=== PATIENT | male | born 1950 | race Caucasian/White ===

== ENCOUNTER → 2018-02-10 12:22 | Outpatient (CLI) | payer MEDICARE, OTHER, SELFPAY ==
[2018-02-10 13:42] LABS: ALB/GLOB Ratio 0.9 RATIO (0.9-2.4); AST(SGOT) 29 U/L (15-37); Alanine Aminotransfer ALT/SGPT 32 U/L (16-61); Albumin, Serum 3.6 g/dL (3.2-5.0); Alkaline Phosphatase 86 U/L (45-117); Anion Gap 10 (5-15); BUN 20 mg/dL (7-18); BUN/Creat Ratio 18.9 RATIO (10-20); Calcium,Total 8.9 mg/dL (8.5-10.1); Chloride 106 mmol/L (98-107); Cholesterol 172 mg/dL (200); Creatinine, Serum 1.06 mg/dL (0.70-1.30); EST Glomerular Filtration Rate 74 mL/min (>60); Est Glom Filt Rate - Afr Amer 89 mL/min (>60); Globulin 4.2 g/dL (2.2-4.2); Glucose 88 mg/dL (74-106); High Density Lipoprotein 55 mg/dL; Potassium 4.1 mmol/L (3.5-5.1); Protein, Total 7.8 g/dL (6.4-8.2); Sodium Level 140 mmol/L (136-145); Triglycerides 100 mg/dL; Very Low Density Lipoprotein 20 mg/dL (5-40)
== END ==
PROVIDERS: Family Provider Family Medicine; PCP Family Medicine; Visit Provider Family Medicine
DX: I10 Essential (primary) hypertension (principal)
CPT/HCPCS: 36415; 80053; 80061

== ENCOUNTER → 2018-07-11 14:40 | Outpatient (CLI) | payer MEDICARE, OTHER, SELFPAY ==
[2018-07-11 13:33] VITALS: BMI 28.8
--- NOTE | 2018-07-11 14:45 | RAD_ITS ---
STUDY: X-RAY CHEST REASON FOR EXAM: Male, 68 years old. Cough TECHNIQUE: Frontal and lateral views of the chest were obtained. COMPARISON: None. FINDINGS: Lines and tubes: None. Lungs: Adequately aerated. No focal airspace opacities. Pleura: No demonstrated abnormality. Mediastinum/elva: Unremarkable. Cardiovascular: Normal size cardiac silhouette. Central vascularity unremarkable. Atherosclerotic calcifications in the thoracic aorta. Soft tissues: Unremarkable. Bones: Degenerative changes in spine and shoulders. Upper abdomen: No demonstrated abnormality. RAD/Chest PA and Lateral IMPRESSION: No evidence of focal consolidation or pleural effusion. Electronically Signed: Sanaz Brown MD at 15:30 EST , Service support ,
--- OUTSIDE RECORDS SUMMARY | 2018-09-12 20:47 | XMS RPT_ITS ---
:1950 Author Organization OHIP Care Team Providers Name Role Phone Giancarlo Suazo AIRCRAFT NAVIGATOR-C Attending Unavailable Brown, Girma Referring Unavailable SuazoGiancarlo AIRCRAFT NAVIGATOR-C Attending Unavailable Brown, Girma Referring Unavailable SuazoGiancarlo AIRCRAFT NAVIGATOR-C Attending Unavailable Suazo, Giancarlo AIRCRAFT NAVIGATOR-C Referring Unavailable Brown, Girma Primary Care Unavailable Brown, Girma Attending Unavailable Brown, Girma Referring Unavailable Brown, Girma Primary Care Unavailable Brown, Girma Attending Unavailable Brown, Girma Referring Unavailable Brown, Girma Primary Care Unavailable Brown, Girma Attending Unavailable Brown, Girma Referring Unavailable Brown, Girma Primary Care Unavailable Brown, Girma Attending Unavailable Brown, Girma Referring Unavailable PROBLEMS PROBLEMS DATE TYPE CONDITION / CODE ATTENDING STATUS SOURCE 04/18/2018 Unknown L23.7 - Allergic Brown, Girma Active [place] contact dermatitis Community due to plants, Hospital except food / Repository L23.7(ICD-10) 02/10/2018 Unknown I10 - Essential Brown, Girma Active [place] (primary) Community hypertension / Hospital I10(ICD-10) Repository PROCEDURES PROCEDURES No Procedure Records FoundRESULTS RESULTS INTERNAL MEDICINE Observed: 07/12/2018 Status: F Source: [place] OFFICE VISIT 4:35 PM [facility] REPOSIT[facility] [address] [place] [address] [place] [address] OFFICE VISIT Date of Service: 07/11/18 MR#: [id number] Acct: [id number] Name: FERNANDO DE LA FUENTE Rep #: [id number] : 1950 Provider: Giancarlo Sauzo NP Age/Sex: 68/M Location: [facility] Status: Signed Intake Vital Signs07/11/18 Body Mass Index (BMI) 28.8 07/11/18 Height 5 ft 2.5 in Intake Visit Reasons: SINUS Chief Complaint: Cough, Sinus pain Is patient in pain?: No Allergies ciprofloxacin [From Cipro] Allergy (Intermediate, Verified 06/09/18 09:35) muscle aches Medications amlodipine 10 mg-atorvastatin 20 mg tablet 1 tab PO DAILY #90 tab 02/10/18 [Rx Confirmed 06/09/18] ascorbic acid (vitamin C) 1,000 mg tablet 1 g PO DAILY tab 02/10/18 [History Confirmed 06/09/18] multivitamin tablet 1 tab PO DAILY 02/10/18 [History Confirmed 06/09/18] tadalafil 20 mg tablet 20 mg PO DAILY PRN #3 tab 02/10/18 [Rx Confirmed 06/09/18] tamsulosin 0.4 mg capsule 0.4 mg PO QHS #90 cap 02/10/18 [Rx Confirmed 06/09/18] triamcinolone acetonide 55 mcg nasal spray aerosol 1 spray INTRANASAL DAILY 02/10/18 [History Confirmed 06/09/18] benzonatate 100 mg capsule 100 mg PO TID PRN #30 cap 06/09/18 [Rx Confirmed 06/09/18] albuterol sulfate HFA 90 mcg/actuation aerosol inhaler 1 - 2 puff INHALATION Q6H PRN #8 g 07/11/18 [Rx Confirmed 07/11/18] codeine 10 mg-guaifenesin 100 mg/5 mL oral liquid See Rx Instructions PO Q6H PRN #120 ml 07/11/18 [Rx Confirmed 07/11/18] prednisone 20 mg tablet 40 mg PO QDAY #10 tab 07/11/18 [Rx Confirmed 07/11/18] PFSH Medical History Arthritis (Acute) Bladder cancer (Acute) High cholesterol (Acute) Hypertension (Chronic) Surgical History History of bladder surgery (Acute) Family History Father Hypertension CVA (cerebral vascular accident) Kidney disease High cholesterol Social History Smoking Status: Never smoker alcohol intake: never what type of physical activity do you participate in: bicycling HPI HPI Chief Complaint: Cough, Sinus pain Details: FERNANDO DE LA FUENTE, is a 68 M who presents to the office today for an acute visit for cough. He has a past medical history as listed above. Patient states his cough has been going on since his last visit on 06/09. Patient states the cough is on and off sometimes better and sometimes worse. Is experiencing sinus drainage and difficulty staying asleep because the cough keeps waking him up. Patient states has tried Mucinex and Tessalon Perles with little relief. He describes his cough is a dry cough but this morning he coughed up nagy sputum. Patient is feeling slight sinus pressure on and off and congestion which he uses a Cheryl pot for. Patient denies any fevers, chest tightness and shortness of breath. Patient has no history of smoking or asthma. The patient otherwise denies any fever, chills, nausea, vomiting, shortness of breath, chest pain or pressure, palpitations, orthopnea, lower extremity edema, syncope or presyncopal episodes. ROS Const Constitutional: No weight change, body ache, chills, fatigue, sleep problems, fever(s), change in appetite, snoring, weakness, frequent falls, headache(s) or excessive sweating Eyes Eyes: No change in vision, eye pain, light sensitivity or blurry vision ENT ENT: Positive for nasal congestion; no headache(s), abnormal hearing, ear pain, tinnitus, sore throat or neck pain Resp Respiratory: Positive for cough Cough: Yes productive; no snoring, shortness of breath or wheezing Cardio Cardiology: No excessive sweating, chest pain at rest, chest pain with exertion, shortness of breath, dyspnea on exertion, palpitations, orthopnea or lightheadedness Gastro GI: No abdominal pain, change in bowel habits, constipation, diarrhea, vomiting, nausea/dyspepsia or cramping Genitourinary Male: No painful urination, urinary incontinence, urinary frequency, urinary urgency, blood in urine, testicle pain or other Musc Musculoskeletal: No neck pain, abnormal walking, joint pain, back pain, limited range of motion, numbness or tingling Skin Skin: No redness, dry skin, itching, lesions, wounds or rash Neuro Neurology: No weakness, frequent falls, headache(s), abnormal hearing, abnormal walking, numbness, tingling, abnormal speech, dizziness or memory loss Psych Psychiatric: No change in appetite, No memory loss, No anxiety, No depression, No Thoughts of harming yourself/Others Endo Endocrine: No fatigue, excessive sweating, cold intolerance, increased thirst/drinking, heat intolerance, flushing or increased hunger Aller/Imm Allergy/Immunologic: No wheezing, itchy eyes, hives or seasonal allergy symptoms Hubert/Lymp Hematologic/Lymphatic: No easy bleeding, easy bruising or enlarged lymph nodes Exam Const General: cooperative, comfortable, no acute distress Nutritional Appearance: average body habitus, well nourished Orientation: alert, oriented x3 Limitations: mental status not altered HENMT Head: normal to inspection Ears: hearing grossly normal bilaterally, TM's normal bilaterally Nose: external nose normal, nasal discharge clear Face and sinus: sinus tenderness (tenderness to palpation) frontal Mouth: oral mucosae normal Throat: posterior oropharynx normal Resp Effort AND Inspection: normal respiratory effort, able to speak in complete sentences, normal respiratory pattern, symmetric chest movement, no audible wheezes, no cough Auscultation: Bilateral: Expiratory Wheezes Cardio Palpation: normal PMI Rate: regular rate Heart Sounds: S1 normal, S2 normal, normal S1 and S2, no click, no gallops, no murmurs, no rubs Skin General: no rashes or lesions noted, elasticity normal, turgor normal Lesions: no lesions Rashes: no rashes Neuro General: alert, awake, oriented x3 Speech: speech normal Gait: normal gait Motor: muscle tone normal throughout Extrem General: normal to inspection, normal gait, no edema, no pedal edema Psych Appearance: grossly normal Mental Status: mental status grossly normal Affect: normal affect Attitude: cooperative Thought Process: normal Assessment AND Plan Problems 1. Bronchitis J40 2. Cough R05 Plan Patient has had lingering cough for the last 4 weeks with no significant improvement. Due to wheezing noted on exam patient diagnosed with bronchitis, plan will be for chest x-ray today to rule out pneumonia, this was negative. Patient can take codeine- guafenesin, benzonatate and albuterol inhaler for cough. Prednisone burst for inflammation was prescribed. He was instructed on all medications, side effects and patient verbalizes understanding. Patient to follow up as previously scheduled or sooner if needed. Instructed not to drive while on the cough syrup with codeine. This note was generated with [employer] software. It may contain incorrect words, spelling, and punctuation that were not noted in checking the note before signing. Orders Orders: Medications New: albuterol sulfate HFA 90 mcg/actuation (Vento1 - 2 puffs Inhalation Q6H PRN 8 grams 0RF c karel HFA) ough Refilled: Plan Detail Follow Up as needed Coding Level of Care Code Off vis,est,level 3 Diagnoses Bronchitis J40 Cough R05 07/12/18 1635 <Electronically signed by Giancarlo OAKLEY> Date Giancarlo OAKLEY Cosigner Signature: Date (if applicable) CC: CHEST PA AND LATERAL Observed: 07/11/2018 Status: F Source: [place] 2:45 PM [facility] REPOSITORY [facility] Imaging Services [address] [place] [id number] Chest PA and Lateral MR#: [id number] Acct: [id number] Name: FERNANDO DE LA FUENTE Rep #: [id number] : 1950 M 68 From: Sanaz Brown MD PCP: Girma Payne DO Status: REG CLI Study: Chest PA and Lateral Date of Exam: 07/11/18 Exam# [id number] Ordering Dr: Giancarlo Suazo STUDY: X-RAY CHEST REASON FOR EXAM: Male, 68 years old. Cough TECHNIQUE: Frontal and lateral views of the chest were obtained. COMPARISON: None. FINDINGS: Lines and tubes: None. Lungs: Adequately aerated. No focal airspace opacities. Pleura: No demonstrated abnormality. Mediastinum/elva: Unremarkable. Cardiovascular: Normal size cardiac silhouette. Central vascularity unremarkable. Atherosclerotic calcifications in the thoracic aorta. Soft tissues: Unremarkable. Bones: Degenerative changes in spine and shoulders. Upper abdomen: No demonstrated abnormality. RAD/Chest PA and Lateral IMPRESSION: No evidence of focal consolidation or pleural effusion. Electronically Signed: Sanaz Brown MD at 15:30 EST , Service support , CC: Girma Payne DO; Giancarlo Suazo NP Nurse School: Signed INTERNAL MEDICINE Observed: 06/09/2018 Status: F Source: [place] OFFICE VISIT 11:[address] [facility] [place] [address] [place] [address] OFFICE VISIT Date of Service: 06/09/18 MR#: [id number] Acct: [id number] Name: FERNANDO DE LA FUENTE Demar Rep #: [id number] : 1950 Provider: Giancarlo Suazo NP Age/Sex: 68/M Location: [facility] Status: Signed Intake Vital Signs06/09/18 Body Mass Index (BMI) 28.8 06/09/18 Height 5 ft 2.5 in 06/09/18 Weight: 157 lb 06/09/18 Body Mass Index (BMI) 28.2 06/09/18 Blood Pressure 120/74 Intake Visit Reasons: SINUS INF Chief Complaint: Cough, Sinus pain Is patient in pain?: No Allergies ciprofloxacin [From Cipro] Allergy (Intermediate, Verified 06/09/18 09:35) muscle aches Medications amlodipine 10 mg-atorvastatin 20 mg tablet 1 tab PO DAILY #90 tab 02/10/18 [Rx Confirmed 06/09/18] ascorbic acid (vitamin C) 1,000 mg tablet 1 g PO DAILY tab 02/10/18 [History Confirmed 06/09/18] multivitamin tablet 1 tab PO DAILY 02/10/18 [History Confirmed 06/09/18] tadalafil 20 mg tablet 20 mg PO DAILY PRN #3 tab 02/10/18 [Rx Confirmed 06/09/18] tamsulosin 0.4 mg capsule 0.4 mg PO QHS #90 cap 02/10/18 [Rx Confirmed 06/09/18] triamcinolone acetonide 55 mcg nasal spray aerosol 1 spray INTRANASAL DAILY 02/10/18 [History Confirmed 06/09/18] benzonatate 100 mg capsule 100 mg PO TID PRN #30 cap 06/09/18 [Rx Confirmed 06/09/18] codeine 10 mg-guaifenesin 100 mg/5 mL oral liquid See Rx Instructions PO Q6H PRN #120 ml 06/09/18 [Rx Confirmed 06/09/18] PFSH Medical History Arthritis (Acute) Bladder cancer (Acute) High cholesterol (Acute) Hypertension (Chronic) Surgical History History of bladder surgery (Acute) Family History Father Hypertension CVA (cerebral vascular accident) Kidney disease High cholesterol Social History Smoking Status: Never smoker alcohol intake: never what type of physical activity do you participate in: bicycling HPI HPI Chief Complaint: Cough, Sinus pain Details: FERNANDO DE LA FUENTE, is a 68 M who presents to the office today for an acute visit of productive cough of yellow sputum and maxillary sinus pain times 1-2 weeks which is progressively getting better. He has a past medical history as listed above. The patient states that his symptoms began approximately 2 weeks ago and have been progressively getting better. However he wanted checked out before the holiday to see if an antibiotic was indicated. He states that he has had a productive cough of yellow mucus and sinus pain. He has been utilizing Flonase once daily and Mucinex with mild relief. He denies any other treatments and denies any sick contacts. He denies any other aggravating or relieving symptoms. The patient otherwise denies any fever, chills, nausea, vomiting, shortness of breath, chest pain or pressure, palpitations, orthopnea, lower extremity edema, syncope or presyncopal episodes. ROS Const Constitutional: Positive for headache(s); no chills, fatigue, fever(s), frequent falls, malaise, weakness, sleep problems or change in appetite Eyes Eyes: No blurry vision, change in vision, double vision, discharge or visual disturbances ENT ENT: Positive for facial pain, sinus pain and headache(s); no abnormal hearing, ear pain, ear pressure, tinnitus or dizziness/vertigo Resp Respiratory: Positive for cough Cough: Yes productive; no shortness of breath or wheezing Cardio Cardiology: No chest pain at rest, chest pain with exertion, shortness of breath, dyspnea on exertion, generalized swelling, irregular heart rhythm, lightheadedness, orthopnea, fast heart rate or palpitations Gastro GI: No abdominal pain, change in bowel habits, constipation, diarrhea, nausea/dyspepsia or vomiting Genitourinary Male: No difficulty urinating, burning urination, painful urination, urinary incontinence, urinary frequency, urinary urgency, urinary hesitancy, urinary retention, blood in urine, Frequent nighttime urination/ nocturia, sexual problems, testicle lump or testicle pain Musc Musculoskeletal: No joint pain, back pain, joint swelling, limited range of motion, numbness or tingling Skin Skin: No change in skin color, itching, rash or wounds Breast Breast: No breast lump or breast pain Neuro Neurology: Positive for headache(s); no frequent falls, weakness, abnormal hearing, numbness, tingling, unsteady gait/balance, dizziness, loss of vision, memory loss or visual disturbances Psych Psychiatric: No memory loss, No anxiety, No change in appetite, No depression, No Thoughts of harming yourself/Others Endo Endocrine: No fatigue, heat intolerance, increased thirst/drinking, increased hunger or increased urination Aller/Imm Allergy/Immunologic: No wheezing, itchy eyes or seasonal allergy symptoms Hubert/Lymp Hematologic/Lymphatic: No easy bleeding, easy bruising or enlarged lymph nodes Exam Const General: cooperative, comfortable, no acute distress Nutritional Appearance: average body habitus, well nourished Orientation: alert, oriented x3 Limitations: mental status not altered [facility] Head: normal to inspection Ears: hearing grossly normal bilaterally, EAC abnormal cerumen impaction on the right, TM's normal bilaterally Nose: external nose normal, nasal discharge clear Face and sinus: sinus tenderness maxillary Mouth: oral mucosae normal Throat: posterior oropharynx abnormal erythema Resp Effort AND Inspection: normal respiratory effort, able to speak in complete sentences, normal respiratory pattern, symmetric chest movement, no audible wheezes, no cough Auscultation: Bilateral: Clear to Auscultation Cardio Palpation: normal PMI Rate: regular rate Heart Sounds: S1 normal, S2 normal, normal S1 and S2, no click, no gallops, no murmurs, no rubs Skin General: no rashes or lesions noted, elasticity normal, turgor normal Lesions: no lesions Rashes: no rashes Neuro General: alert, awake, oriented x3, CN's II-XI intact bilaterally Speech: speech normal Gait: normal gait Motor: muscle tone normal throughout Extrem General: normal to inspection, normal gait, no edema, no pedal edema Psych Appearance: grossly normal Mental Status: mental status grossly normal Affect: normal affect Attitude: cooperative Thought Process: normal Office Procedures Cerumen Removal BMS Cerumen Removal Procedure Procedure performed by: Tracie Naik Method of removal: irrigation From which ear canal was the cerumen removed: right Amount of Cerumen: moderate Patient tolerated procedure: well Complications: none Assessment AND Plan 1. Acute non-recurrent maxillary sinusitis J01.00 Plan Patient's upper respiratory symptoms and sinus pressure are most likely viral in nature. Given the fact that his symptoms are progressively improving, we will hold off on antibiotic treatment at this time and treat conservatively. Patient to continue with his Flonase twice daily. Sinus rinse sample given in office today and patient instructed on its use. For his cough he may use Tessalon during the day and cough syrup with codeine at night as the cough does sometimes keep him awake at night. Discussed red flag symptoms requiring urgent medical attention. Discussed not driving while on the cough syrup with codeine. OARRS was verified and demonstrates no red flags that would indicate abuse or diversion. Discussed hand hygiene, increasing fluids, and rest, patient to follow-up as previously scheduled or sooner if needed. 2. Cough R05 Plan See above plan 3. Right ear impacted cerumen H61.21 Plan See above procedure note, advised on the use of Debrox and not to use Q-tips in the future Orders Orders: Plan Detail Other Medications New: Coding Level of Care Code Off vis,est,level 3 Diagnoses Acute non-recurrent maxillary sinusitis J01.00 Recurrence: non-recurrent Cough R05 Right ear impacted cerumen H61.21 06/09/18 1137 <Electronically signed by Giancarlo OAKLEY> Date Giancarlo Suazo AIRCRAFT NAVIGATOR-C Cosigner Signature: Date (if applicable) CC: INTERNAL MEDICINE Observed: 04/18/2018 Status: F Source: [place] OFFICE VISIT 9:[address] [facility] [address] [place] [address] [place] [address] OFFICE VISIT Date of Service: 04/18/18 MR#: [id number] Acct: [id number] Name: FERNANDO DE LA FUENTE Demar Rep #: [id number] : 1950 Provider: Girma Payne DO Age/Sex: 68/M Location: [facility] Status: Signed Intake Vital Signs04/18/18 Height 5 ft 2.5 in 04/18/18 Weight: 160 lb 04/18/18 Body Mass Index (BMI) 28.8 04/18/18 Blood Pressure 140/74 H 04/18/18 Blood Pressure Location Lt brachial Intake Visit Reasons: POISON IMANI Chief Complaint: Poison Imani Is patient in pain?: No Allergies ciprofloxacin [From Cipro] Allergy (Intermediate, Verified 04/18/18 08:44) muscle aches Medications amlodipine 10 mg-atorvastatin 20 mg tablet 1 tab PO DAILY #90 tab 02/10/18 [Rx Confirmed 04/18/18] ascorbic acid (vitamin C) 1,000 mg tablet 1 g PO DAILY tab 02/10/18 [History Confirmed 04/18/18] multivitamin tablet 1 tab PO DAILY 02/10/18 [History Confirmed 04/18/18] tadalafil 20 mg tablet 20 mg PO DAILY PRN #3 tab 02/10/18 [Rx Confirmed 04/18/18] tamsulosin 0.4 mg capsule 0.4 mg PO QHS #90 cap 02/10/18 [Rx Confirmed 04/18/18] triamcinolone acetonide 55 mcg nasal spray aerosol 1 spray INTRANASAL DAILY 02/10/18 [History Confirmed 04/18/18] prednisone 20 mg tablet 20 mg PO DAILY #20 tab 04/18/18 [Rx Confirmed 04/18/18] [facility] Medical History Arthritis (Acute) Bladder cancer (Acute) High cholesterol (Acute) Hypertension (Chronic) Surgical History History of bladder surgery (Acute) Family History Father Hypertension CVA (cerebral vascular accident) Kidney disease High cholesterol Social History Smoking Status: Never smoker alcohol intake: never what type of physical activity do you participate in: bicycling HPI HPI Chief Complaint: Poison Imani Details: FERNANDO DE LA FUENTE, is a 68 M who presents to the office today for a papulovesicular rash on his arms especially in his wrist that he developed after working in gravel by his house. ROS Const Constitutional: No chills, fatigue, fever(s), frequent falls, malaise, weakness, sleep problems or change in appetite Eyes Eyes: No blurry vision, change in vision, double vision, discharge or visual disturbances ENT ENT: No abnormal hearing, ear pain, ear pressure, tinnitus or dizziness/vertigo Resp Respiratory: No cough, shortness of breath or wheezing Cardio Cardiology: No chest pain at rest, chest pain with exertion, shortness of breath, dyspnea on exertion, generalized swelling, irregular heart rhythm, lightheadedness, orthopnea, fast heart rate or palpitations Gastro GI: No abdominal pain, change in bowel habits, constipation, diarrhea, nausea/dyspepsia or vomiting Genitourinary Male: No difficulty urinating, burning urination, painful urination, urinary incontinence, urinary frequency, urinary urgency, urinary hesitancy, urinary retention, blood in urine, Frequent nighttime urination/ nocturia, sexual problems, testicle lump or testicle pain Musc Musculoskeletal: No joint pain, back pain, joint swelling, limited range of motion, muscle weakness, numbness or tingling Skin Skin: Positive for itching (Both arms) and rash (Both arms); no change in skin color or wounds Breast Breast: No breast lump or breast pain Neuro Neurology: No frequent falls, weakness, abnormal hearing, numbness, tingling, unsteady gait/balance, dizziness, loss of vision, memory loss or visual disturbances Psych Psychiatric: No memory loss, No anxiety, No change in appetite, No depression, No Thoughts of harming yourself/Others Endo Endocrine: No fatigue, heat intolerance, increased thirst/drinking, increased hunger or increased urination Aller/Imm Allergy/Immunologic: Positive for itchy eyes (Both arms); no wheezing or seasonal allergy symptoms Hubert/Lymp Hematologic/Lymphatic: No easy bleeding, easy bruising or enlarged lymph nodes Exam Const General: cooperative Chest Chest palpation AND inspection: normal inspection of the chest Cardio Rate: regular rate Rhythm: regular rhythm Musc Musculoskeletal: No muscle weakness Skin Rashes: rashes noted Assessment AND Plan Problems 1. Poison imani dermatitis L23.7 Plan Patient was seen with a maculopapular rash on his wrists and arms that was extremely pruritic. He was working outside on the foundation of his house was pretty sure he got some contact of poison imani alis he has had trouble in the past with poison imani. He was given a tapering dose of steroids over 10 days told to continue cool soaks and calamine lotion and to contact me should he continue to have problems. Medications New: prednisone Take three tablets for three days, then two tabl20 mg PO DAILY 20 tabs 0RF ets for three days then one tablet till gone Coding Level of Care Code Off vis,est,level 3 Diagnoses Poison imani dermatitis L23.7 04/18/18 0943 <Electronically signed by Girma Payne DO> Date Girma Payne DO Cosigner Signature: Date (if applicable) CC: INTERNAL MEDICINE Observed: 03/08/2018 Status: F Source: [place] OFFICE VISIT 12:[address] [facility] [address] [place] [address] [place] [address] OFFICE VISIT Date of Service: 03/08/18 MR#: [id number] Acct: [id number] Name: FERNANDO DE LA FUENTE Rep #: [id number] : 1950 Provider: Girma Payne DO Age/Sex: 68/M Location: [facility] Status: Signed Intake Vital Signs03/08/18 Height 5 ft 2.5 in Intake Visit Reasons: CORTISONE INJ PER VM Chief Complaint: cortisone injection Is patient in pain?: No Allergies ciprofloxacin [From Cipro] Allergy (Intermediate, Verified 02/10/18 11:25) muscle aches Medications amlodipine 10 mg-atorvastatin 20 mg tablet 1 tab PO DAILY #90 tab 02/10/18 [Rx Confirmed 02/10/18] ascorbic acid (vitamin C) 1,000 mg tablet 1 g PO DAILY tab 02/10/18 [History Confirmed 02/10/18] multivitamin tablet 1 tab PO DAILY 02/10/18 [History Confirmed 02/10/18] tadalafil 20 mg tablet 20 mg PO DAILY PRN #3 tab 02/10/18 [Rx Confirmed 02/10/18] tamsulosin 0.4 mg capsule 0.4 mg PO QHS #90 cap 02/10/18 [Rx Confirmed 02/10/18] triamcinolone acetonide 55 mcg nasal spray aerosol 1 spray INTRANASAL DAILY 02/10/18 [History Confirmed 02/10/18] PFSH Medical History Arthritis (Acute) Bladder cancer (Acute) High cholesterol (Acute) Hypertension (Chronic) Surgical History History of bladder surgery (Acute) Family History Father Hypertension CVA (cerebral vascular accident) Kidney disease High cholesterol Social History Smoking Status: Never smoker alcohol intake: never what type of physical activity do you participate in: bicycling HPI HPI Chief Complaint: cortisone injection Details: FERNANDO DE LA FUENTE, is a 68 M who presents to the office today for a injection of his right knee. ROS Const Constitutional: No weight change, body ache, chills, fatigue, sleep problems, fever(s), change in appetite, snoring, weakness, frequent falls, headache(s) or excessive sweating Eyes Eyes: No change in vision, eye pain, light sensitivity or blurry vision ENT ENT: No headache(s), abnormal hearing, ear pain, tinnitus, nasal congestion, sore throat or neck pain Resp Respiratory: No snoring, cough, shortness of breath or wheezing Cardio Cardiology: No excessive sweating, chest pain at rest, chest pain with exertion, shortness of breath, dyspnea on exertion, palpitations, orthopnea or lightheadedness Gastro GI: No abdominal pain, change in bowel habits, constipation, diarrhea, vomiting, nausea/dyspepsia or cramping Genitourinary Male: No painful urination, urinary incontinence, urinary frequency, urinary urgency, blood in urine, testicle pain or other Musc Musculoskeletal: No neck pain, abnormal walking, joint pain, back pain, limited range of motion, numbness or tingling Skin Skin: No redness, dry skin, itching, lesions, wounds or rash Neuro Neurology: No weakness, frequent falls, headache(s), abnormal hearing, abnormal walking, numbness, tingling, abnormal speech, dizziness or memory loss Psych Psychiatric: No change in appetite, No memory loss, No anxiety, No depression, No Thoughts of harming yourself/Others Endo Endocrine: No fatigue, excessive sweating, cold intolerance, increased thirst/drinking, heat intolerance, flushing or increased hunger Aller/Imm Allergy/Immunologic: No wheezing, itchy eyes, hives or seasonal allergy symptoms Hubert/Lymp Hematologic/Lymphatic: No easy bleeding, easy bruising or enlarged lymph nodes Exam Musc Musculoskeletal: Yes joint tenderness and decreased ROM (Right knee) Office Procedures Ortho Injections Injections Yes Knee Right Details: Right knee was injected with a solution of 2 cc of 1% xylocaine and 40 mg of kenalog Assessment AND Plan Orders Orders: Medications New: Coding Level of Care Code Off vis,new,level 3 Additional Codes 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 Internal Medicine [address] [place] [address] A MIL[place] Zambrano [address] OFFICE VISIT Date of Service: 02/10/18 MR#: [id number] Acct: [id number] Name: FERNANDO DE LA FUENTE Rep #: [id number] : 1950 Provider: Girma Payne DO Age/Sex: 68/M Location[place] [facility] Status: Signed Intake Vital Signs02/10/18 Height 5 ft 2.5 in 02/10/18 Weight: 159 lb 02/10/18 Body Mass Index (BMI) 28.6 02/10/18 Blood Pressure 148/76 Intake Visit Reasons: refills Chief Complaint: Refills on meds Is patient in pain?: Yes (Knees) Pain scale (1-10): 6 Allergies ciprofloxacin [From Cipro] Allergy (Intermediate, Verified 02/10/18 11:25) muscle aches Medications amlodipine 10 mg-atorvastatin 20 mg tablet 1 tab PO DAILY #90 tab 02/10/18 [Rx Confirmed 02/10/18] ascorbic acid (vitamin C) 1,000 mg tablet 1 g PO DAILY tab 02/10/18 [History Confirmed 02/10/18] multivitamin tablet 1 tab PO DAILY 02/10/18 [History Confirmed 02/10/18] tadalafil 20 mg tablet 20 mg PO DAILY PRN #3 tab 02/10/18 [Rx Confirmed 02/10/18] tamsulosin 0.4 mg capsule 0.4 mg PO QHS #90 cap 02/10/18 [Rx Confirmed 02/10/18] triamcinolone acetonide 55 mcg nasal spray aerosol 1 spray INTRANASAL DAILY 02/10/18 [History Confirmed 02/10/18] PFSH Medical History Arthritis (Acute) Bladder cancer (Acute) High cholesterol (Acute) Hypertension (Chronic) Surgical History History of bladder surgery (Acute) Family History Father Hypertension CVA (cerebral vascular accident) Kidney disease High cholesterol Social History Smoking Status: Never smoker alcohol intake: never what type of physical activity do you participate in: bicycling HPI HPI Chief Complaint: Refills on meds Details: FERNANDO DE LA FUENTE, is a 68 M who presents to the office today for a check up, he will get remarried. He needs to have medications refilled. ROS Const Constitutional: No chills, fatigue, fever(s), frequent falls, malaise, weakness, sleep problems or change in appetite Eyes Eyes: No blurry vision, change in vision, double vision, discharge or visual disturbances ENT ENT: No abnormal hearing, ear pain, ear pressure, tinnitus or dizziness/vertigo Resp Respiratory: No cough, shortness of breath or wheezing Cardio Cardiology: No chest pain at rest, chest pain with exertion, shortness of breath, dyspnea on exertion, generalized swelling, irregular heart rhythm, lightheadedness, orthopnea, fast heart rate or palpitations Gastro GI: No abdominal pain, change in bowel habits, constipation, diarrhea, nausea/dyspepsia or vomiting Genitourinary Male: No difficulty urinating, burning urination, painful urination, urinary incontinence, urinary frequency, urinary urgency, urinary hesitancy, urinary retention, blood in urine, Frequent nighttime urination/ nocturia, sexual problems, testicle lump or testicle pain Musc Musculoskeletal: Positive for joint pain (Knees); no back pain, joint swelling, limited range of motion, muscle weakness, numbness or tingling Skin Skin: No change in skin color, itching, rash or wounds Breast Breast: No breast lump or breast pain Neuro Neurology: No frequent falls, weakness, abnormal hearing, numbness, tingling, unsteady gait/balance, dizziness, loss of vision, memory loss or visual disturbances Psych Psychiatric: No memory loss, No anxiety, No change in appetite, No depression, No Thoughts of harming yourself/Others Endo Endocrine: No fatigue, heat intolerance, increased thirst/drinking, increased hunger or increased urination Aller/Imm Allergy/Immunologic: No wheezing, itchy eyes or seasonal allergy symptoms Hubert/Lymp Hematologic/Lymphatic: No easy bleeding, easy bruising or enlarged lymph nodes Exam Const General: healthy appearing Nutritional Appearance: average body habitus Orientation: oriented x3 [facility] Head: normal to inspection Ears: hearing grossly normal bilaterally Resp Effort AND Inspection: normal respiratory effort Auscultation: Bilateral: Clear to Auscultation Cardio Rate: regular rate Rhythm: regular rhythm Musc Musculoskeletal: Yes joint tenderness (Right knee is tender with a lot of palpable crepitus); no muscle weakness Skin General: no rashes or lesions noted Neuro General: oriented x3 Cranial Nerves: CN's II-XI intact bilaterally Cognition: normal cognition Speech: speech normal Gait: antalgic Psych Appearance: well kempt Mental Status: mental status grossly normal Thought Process: normal Judgment: judgment good Other: Pt. is doing very well, very happy about his engagement and wedding plans. Assessment AND Plan Problems 1. BPH (benign prostatic hyperplasia) N40.0 Patient has had no increased urinary problems he still sees Dr. Flowers for his benign prostatic hypertrophy. 2. Essential hypertension I10 His blood pressure is well controlled under his current drug regime. 3. Mixed hyperlipidemia E78.2 Lipid screen was ordered to see if his current drug therapy is adequately controlling the lipids. 4. Erectile dysfunction, unspecified erectile dysfunction type N52.9 He is getting March 16 he needs some medication to help him with erectile dysfunction problems so I told him Cialis was not covered by his prescription plan but he was willing to self-pay for that. Orders Orders: Medications New: tadalafil (Cialis) administer ap20 mg PO DAILY PRN sexual activity Girma Payne, DO proximately 30min before sexual act ivity; do not use more than 1 dose per 24hrs Refilled: Discontinued: Plan Detail Follow Up 6 Months Coding Level of Care Code Off vis,est,level 3 Diagnoses BPH (benign prostatic hyperplasia) N40.0 Essential hypertension I10 Hypertension type: essential hypertension Mixed hyperlipidemia E78.2 Hyperlipidemia type: mixed hyperlipidemia Erectile dysfunction, unspecified erectile dysfunction type N52.9 Erectile dysfunction type: unspecified 02/10/18 1256 <Electronically signed by Girma Payne DO> Date Girma Payne DO Cosigner Signature: Date (if applicable) CC: COMPREHENSIVE METABOLIC Collected: 02/10/2018 Status: F Source: [facility] MARK 12:38 PM [facility] REPOSITORY TYPE CODE TESTS RESULT OUT OF RANGE REFERENCE UNITS LAB L501.0100 74-106 mg/dL Normal GLU 88 Result Comment: Please note revised GLUCOSE reference range effective 2017. LAB L501.1000 7-18 mg/dL High BUN 20 LAB L501.1100 0.70-1.30 mg/dL Normal CREAT,SERUM 1.06 Result Comment: The validity of the calculated GFR AND GFRAA in patients over 70 years has not been determined. Clinical correlation is essential. LAB L501.1110 >60 mL/min Normal EST GFR 74 Result Comment: Non- GFR Calc LAB L501.1115 >60 mL/min Normal EST GFR - AA 89 Result Comment: GFR Calc LAB L501.1300 10-20 RATIO Normal BUN/CRE 18.9 LAB L501.1500 6.4-8.2 g/dL T Normal PROT 7.8 LAB L501.1800 3.2-5.0 g/dL Normal ALB 3.6 LAB L501.1950 2.2-4.2 g/dL Normal GLOB 4.2 LAB L501.2000 0.9-2.4 RATIO Normal A/G 0.9 LAB L501.2200 8.5-10.1 mg/dL CA Normal 8.9 LAB L501.4100 15-37 U/L Normal AST 29 LAB L501.4305 45-117 U/L Normal ALK P 86 LAB L501.4405 16-61 U/L Normal ALT 32 LAB L501.4600 0.20-1.00 mg/dL T Normal BILI 0.50 LAB L501.5300 136-145 mmol/L NA Normal 140 LAB L501.5600 3.5-5.1 mmol/L K Normal 4.1 LAB L501.5900 98-107 mmol/L CL Normal 106 LAB L501.6100 21.0-32.0 mmol/L Normal CO2 24.0 LAB L501.6200 5-15 Normal GAP 10 Performed By: #### L500.4050, L500.4100 #### [facility] [address] [place], [place], [address] LIPID PROFILE Collected: 02/10/2018 Status: F Source: [place] 12:38 PM [facility] REPOSITORY TYPE CODE TESTS RESULT OUT OF RANGE REFERENCE UNITS LAB L501.4900 200 mg/dL Normal CHOL 172 Result Comment: <200 mg/dL Desirable 200-240 mg/dL Borderline >240 mg/dL High Risk LAB L501.5000 mg/dL Normal TRIG 100 Result Comment: The drugs N-Acetylcysteine and Metamizole may falsely depress this assay. Serum Triglycerides Reference Interval Normal <150 mg/dL Borderline high 150 - 199 mg/dL High 200 - 499 mg/dL Very High > or = 500 mg/dL LAB L501.6400 mg/dL Normal HDL 55 Result Comment: The drugs N-Acetylcysteine and Metamizole may falsely depress this assay. Reference Range HDL <40 mg/dL Low HDL Cholesterol HDL >or= 60 mg/dL High HDL Cholesterol LAB L501.6500 0-130 mg/dL Normal LDL 97 LAB L501.6600 5-40 mg/dL Normal VLDL 20 Performed By: #### L500.4050, L500.4100 #### [facility] [address] [place], [address] ALLERGIES ALLERGIES DATE TYPE / CODE NAME / CODE REACTION SEVERITY SOURCE 06/09/2018 Drug ciprofloxaci MUSCLE ACHES MO [facility] Allergy/4160 n/[id number] Hospital 9[address]10(SNOMED (RXNORM) Repository CT) ENCOUNTERS ENCOUNTERS ADMIT/DISCHARGE ACCOUNT ADMITTING ENCOUNTER LOCATION SOURCE NUMBER CLASS 07/11/2018 [id number] Ambulatory [place] 7 [facility] ing:MTRAD Repository 07/11/2018/ [id number] Ambulatory BMSBuilding:B [place] 9 8 [facility] 06/09/2018/ [id number] Ambulatory BMSBuilding:B [place] 8 8 [facility] Repository 04/18/2018/ [id number] Ambulatory BMSBuilding:B [place] 8 9 [facility] Rep[facility] 03/08/2018/ [id number] Ambulatory BMSBuilding:B [place] 8 0 [facility] Repository 02/10/2018 [id number] Ambulatory [place] 0 [facility] ing:LAB Repository 02/10/2018/ [id number] Ambulatory BMSBuilding:B [place] 8 4 [facility] Repository PAYERS PAYERS ENCOUNTER GUARANTOR PAYER SUBSCRIBER SOURCE 07/11/2018 FERNANDO Benz Primary FERNANDO [id number] Insurance:MEDICARE MATHYSDOB: [facility] PART A BPolicy [id number] Number: Repository [id number]: 330 [id number] [phone] (HP) Date:2018-07-11 07/11/2018 Secondary FERNANDO L [place] Insurance:MEDICAL MATHYSDOB: [address] Hospital Number: Repository [id number] Date:[id number] [address] [address]CZ: 07/11/2018 Tertiary NOT GIVENUNK [place] Insurance:[facility]LF [facility] Number: Effective Repository Date:2018-07-11 07/11/2018 FERNANDO L Primary FERNANDO L [place] [id number] Insurance:MEDICARE MATHYSDOB: [address] Number: Repository [id number]: 330 [id number] [phone] (HP) Date:2018-07-10 07/11/2018 Secondary FERNANDO L [place] Insurance:MEDICAL MATHYSDOB: [address] Hospital Number: Repository [id number] Date:[id number] [address] [address]GF: 07/11/2018 Tertiary NOT GIVENUNK [place] Insurance:SELF [facility]Y [facility] Number: Effective Repository Date:2018-07-10 06/09/2018 FERNANDO L Primary FERNANDO L [place] [id number] Insurance:MEDICARE MATHYSDOB: [address] Number: Repository [id number]: 330 [id number] [phone] (HP) Date:2018-06-08 06/09/2018 Secondary FERNANDO L [place] Insurance:MEDICAL MATHYSDOB: [address] Hospital Number: Repository [id number] Date:0027-64-66II [address] [place] [address]CR: 06/09/2018 Tertiary NOT GIVENUNK [place] Insurance:SELF PAY [facility] Number: Effective Repository Date:2018-06-08 04/18/2018 FERNANDO L Primary FERNANDO Paytonoster [id number] Insurance:MEDICARE MATHYSDOB: [facility] [id number] Number: Repository [id number]: 330 [id number] [phone] (HP) Date:2018-04-17 04/18/2018 Secondary FERNANDO L [place] Insurance:MEDICAL MATHYSDOB: [facility] [id number] Hospital Number: Repository [id number] Date:[id number] [address] [place] [address]BJ: 04/18/2018 Tertiary NOT GIVENUNK [place] Insurance:SELF PAY [facility] Number: Effective Repository Date:2018-04-17 03/08/2018 FERNANDO L Primary FERNANDO Benz [place] [id number] Insurance:MEDICARE MATHYSDOB: [facility] [id number] Number: Repository [id number]: 330 [id number] [phone] (HP) Date:2018-02-13 03/08/2018 Secondary FERNANDO L [place] Insurance:MEDICAL MATHYSDOB: [facility] [id number] Hospital Number: Repository [id number] Date:4896-80-33DV [address] [place] [address]UF: 03/08/2018 Tertiary NOT GIVENUNK [place] Insurance:SELF [facility]Y [facility] Hospital Number: Effective Repository Date:2018-03-08 02/10/2018 FERNANDO L Primary FERNANDO L [place] [id number] OLD Insurance:MEDICARE MATHYSDOB: [facility] [id number] Number: Repository [id number]: 330 [id number] [phone] (HP) Date:2018-02-10 02/10/2018 Secondary FERNANDO L [place] Insurance:MEDICAL MATHYSDOB: [address]08-17UNK Hospital Number: Repository [id number] Date:0009-64-77AB [address], [place] [address]DF: 02/10/2018 Tertiary NOT GIVENUNK [place] Insurance:SELF PAY [facility] Number: Effective Repository Date:2018-02-10 02/10/2018 FERNANDO L Primary FERNANDO Zambrano [id number] OLD Insurance:MEDICARE MATHYSDOB: [facility] [id number] Number: Repository [address]Eay: [phone] [id number] [phone] () Date:2017-12-13 02/10/2018 Secondary FERNANDO Zambrano Insurance:MEDICAL MATHYSDOB: [facility] [id number] Hospital Number: Repository [id number] Date:1017-33-86MZ [facility] [address] [place] [address]JY: 02/10/2018 Tertiary NOT GIVENUNK [place] Insurance:SELF [facility]Y [facility] Hospital Number: Effective Repository Date:2018-02-10
== END ==
PROVIDERS: Family Provider Family Medicine; PCP Family Medicine; Referring Provider Nurse Practitioner Family; Visit Provider Nurse Practitioner Family
DX: R05 Cough (principal)
CPT/HCPCS: 71046

== ENCOUNTER → 2018-08-10 11:07 | Outpatient (CLI) | payer MEDICARE, OTHER, SELFPAY ==
[2018-08-10 10:39] VITALS: BMI 28.8
[2018-08-10 12:21] LABS: Cholesterol 161 mg/dL (200); High Density Lipoprotein 56 mg/dL; Triglycerides 92 mg/dL; Very Low Density Lipoprotein 18 mg/dL (5-40)
[2018-08-11 11:34] LABS: Testosterone, Serum 4226 353 ng/dL (264-916)
== END ==
PROVIDERS: Family Provider Family Medicine; PCP Family Medicine; Visit Provider Family Medicine
DX: E78.5 Hyperlipidemia, unspecified (principal); N52.9 Male erectile dysfunction, unspecified
CPT/HCPCS: 36415; 80061; 84403

== ENCOUNTER → 2018-08-24 18:57 | Outpatient (CLI) | payer MEDICARE, OTHER, SELFPAY ==
[2018-08-10 10:39] VITALS: BMI 28.8
--- NOTE | 2018-08-24 | FLU_PTH ---
PATIENT: FERNANDO DE LA FUENTE LOC: [facility] U#:[id number] AGE/SX: 75/M ROOM: RE08/24/[address]: Dr. Alex Cornell MD : 1950 BED: DIS: SPEC #: [id number] RECD: 08/24/18 15:30 STATUS: MARIE DENNY #: [id number] SHAILA: 08/24/18 00:[address]: Alex Cornell DEPT: CYTOLOGY RECD BY: Claudio Bradford ENTERED: 08/25/18 08:41 SP TYPE: Fluid OTHR DR: Dr. Girma Payne, DO Tissues: Urine Procedures: Special Stain Group II Surgery Specimen Level IV Cytospin Fluid HEADER PERATION: Not noted PRE-OP DIAGNOSIS: C67.2 TISSUE SUBMITTED: Urine DIAGNOSIS CYTOLOGY Urine for cytology (cytospin): Rare atypical urothelial cells present. AM:julio 08/28/18 COMMENT The findings are nonspecific and could represent a variety of conditions including infection, urolithiasis, instrumentation and low grade urothelial neoplasm. Clinical correlation is necessary. CYTOLOGY STUDY Slides are reviewed. CYTOLOGY GROSS Received is 12 ml of cloudy pale yellow fluid labeled with the patient's name and and designated per the requisition as urine. Submitted for cytology preparation including cell block. CC:[email or web address] 08/25/18 TC:? CPT: 91822
[2018-08-24 18:59] LABS: Cytology, Body Fluid / CSF SEE PATHOLOGY REPORT
== END ==
PROVIDERS: Family Provider Family Medicine; PCP Family Medicine; Referring Provider Urology; Visit Provider Urology
DX: C67.2 Malignant neoplasm of lateral wall of bladder (principal)
CPT/HCPCS: 88108; 88305; 88313

== ENCOUNTER → 2018-09-18 11:00 | Outpatient (CLI) | payer MEDICARE, OTHER, SELFPAY ==
[2018-08-10 10:39] VITALS: BMI 28.8
--- NOTE | 2018-09-18 | IMM_PTH ---
PATIENT: FERNANDO DE LA FUENTE LOC: [facility] U#:[id number] AGE/SX: 75/M ROOM: RE09/18/[address]: Dr. Alex Cornell MD : 1950 BED: DIS: SPEC #: [id number] RECD: 09/20/18 11:21 STATUS: MARIE REQ #: [id number] SHAILA: 09/18/18 00:[address]: Alex Cornell DEPT: IMMUNOHISTOCHEMISTRY RECD BY: Mabel Hogue ENTERED: 09/20/18 11:22 SP TYPE: IMMUNO OTHR DR: Dr. Girma Payne, DO Tissues: Urinary bladder, NOS Procedures: CK20 (add) P53 (add) CK7 (initial) PHYSICIAN & [place] [address] SPECIMEN INFORMATION: Tissue Source: Bladder biopsy Clinical Info: Bladder lesion Specimen Number: [id number] CPT code: 65676, 66663 x2 METHODOLOGY: Deparaffinized sections of prefer/formalin-fixed tissue or PAP/DQ stained slides are incubated with monoclonal/polyclonal antibodies/oligonucleotide probes. Localization is made via biotin free immunoperoxidase method. Appropriate controls are performed and reacted as expected. Results on target cell population are indicated in the following table: RESULTS: ANTIBODY / CLONE RESULT CK7 (OV-TL12/30) positive CK20 (KS20.8) positive P53 (DO-7) negative These tests were developed and their performance characteristics determined by [facility]. They may not have been cleared or approved by the U.S. Food and Drug Administration. The FDA has determined that such clearance or approval is not necessary. INTERPRETATION: Bladder biopsy: Moderate to severe epithelial atypia, suspicious for flat carcinoma in situ. SJ:julio 09/21/18 Case has been reviewed in consultation with Dr. Daniels who concurs with the above diagnosis. IDC:AM
--- NOTE | 2018-09-18 11:00 | BLA_PTH ---
PATIENT: FERNANDO DE LA FUENTE LOC: [facility] U#:[id number] AGE/SX: 75/M ROOM: RE09/18/[address]: Dr. Alex Cornell MD : 1950 BED: DIS: SPEC #: [id number] RECD: 09/18/18 16:41 STATUS: MARIE DENNY #: [id number] SHAILA: 09/18/18 11:[address]: Alex Cornell DEPT: SURGICAL PATHOLOGY RECD BY: Stephon Agarwal ENTERED: 09/19/18 10:42 SP TYPE: BLADDER BX OTHR DR: Dr. Girma Payne, DO Tissues: Urinary bladder, NOS Procedures: Surgery Specimen Level IV HEADER OPERATION: Bladder biopsy PRE-OP DIAGNOSIS: Bladder lesion TISSUE SUBMITTED: Bladder biopsy MICROSCOPIC DIAGNOSIS Bladder lesion, biopsy: Fragment of urothelial mucosa with moderate to severe epithelial atypia, suspicious for flat carcinoma in situ. See comment. SJ:julio 09/20/18 COMMENT Immunohistochemistry ([id number]) supports the above diagnosis. 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 Case has been reviewed in consultation with Dr. Daniels who concurs with the above diagnosis. IDC:AM MICROSCOPIC DESCRIPTION Slides are reviewed. GROSS DESCRIPTION Received is one container labeled with the patient's name and not further designated. The specimen consists of one irregular fragment of light kaur soft tissue that measures 0.1 x 0.1 x 0.1 cm. The specimen is totally submitted in one cassette. / SJ:julio 09/19/18 TC:5 CPT: 16210
== END ==
PROVIDERS: Family Provider Family Medicine; PCP Family Medicine; Referring Provider Urology; Visit Provider Urology
DX: N32.9 Bladder disorder, unspecified (principal)
CPT/HCPCS: 88305; 88341; 88342

== ENCOUNTER 2018-10-27 12:45 | Day surgery (SDC) | payer MEDICARE, OTHER, SELFPAY ==
[2018-08-10 10:39] VITALS: BMI 28.8
[2018-10-17 10:19] VITALS: BP 144/90; PULSE 70; RESP 16; TEMP 36.7; O2SAT 97; BMI 29.5
--- NOTE | 2018-10-17 10:59 | SDCEKG_ITS ---
Test Reason : Blood Pressure : / mmHG Vent. Rate : 063 BPM Atrial Rate : 063 BPM P-R Int : 168 ms QRS Dur : 080 ms QT Int : 384 ms P-R-T Axes : 047 -02 031 degrees QTc Int : 392 ms Normal sinus rhythm with sinus arrhythmia Moderate voltage criteria for LVH, may be normal variant Cannot exclude Precordial Lead Misplacement (V1/V2) Abnormal ECG Confirmed by VINICIO MERRITT, KAI ([id number]), editor continuity and script LEONORA MADRIGAL ([id number]) on 10/19/2018 9:02:47 AM Referred By: Alex Cornell Confirmed By:KAI MOONEY MD
[2018-10-27 13:10] VITALS: BP 143/93; PULSE 85; RESP 16; TEMP 36.9; O2SAT 96; BMI 29.5
--- NOTE | 2018-10-27 14:39 | PCM.HP.BLA ---
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 Plan to taken to the operating room for a complete resection and cauterization of the sites involved. Told the patient ideally elected treated with BCG but does a shortage and I'll have any drug so we'll have to do mitomycin C treatments afterwards ALLERGIES: Cipro - Other Reaction, Numbness in arms MEDICATIONS: Allergy Relief Caduet Multivitamin Tamsulosin Hcl 0.4 mg capsule 1 capsule PO Daily Vitamin C PSH: Bladder Instill AntiCA Agent - 2016, 06/17/2016, 05/25/2016, 05/18/2016, 05/11/2016, 05/04/2016, 2015 Cysto Fulgurate < .05 cm - 09/18/2018, 03/03/2017 Cystoscopy - 08/24/2018, 02/23/2018, 06/30/2017, 02/10/2017, 11/09/2016, 2017 Cystoscopy TURBT <2 cm - 07/08/2017 Cystoscopy TURBT >5 cm - 2015 Inguinal Hernia Repair > 5 yrs Prostate Saturation Sampling - 2016 Vasectomy NON- PSH: Colonoscopy - 12/22/2016 Patient not documented to have received pneumococcal vaccination PMH: Benign prostatic hyperplasia with lower urinary tract symptoms - 07/25/2017, - 06/30/2017, - 2015, - 2015 Malignant neoplasm of lateral wall of bladder - 06/30/2017, - 2015, - 2015 Other retention of urine - 06/01/2016 Elevated prostate specific antigen [PSA] - 2015, - 2015 Neoplasm of uncertain behavior of bladder - 2016 Nocturia NON- PMH: Essential (primary) hypertension Pure hypercholesterolemia Immunizations: None FAMILY HISTORY: Hypertension - Father, Runs in Family multiple myeloma - Mother SOCIAL HISTORY: Marital Status: Preferred Language: Hebrew; Ethnicity: Not Or ; Race: White Current Smoking Status: Patient has never smoked. Tobacco Use Assessment Completed: Used Smokeless in last 30 days? Smoking cessation counseling was provided. Does not use smokeless tobacco. Has never drank. Does not use drugs. Does not drink caffeine. Has not had a blood transfusion. REVIEW OF SYSTEMS: Constitutional: Patient denies fever, chills, weight loss, and weight gain. Genitourinary: Patient denies frequent urination, urinary retention, get up at night to void, leakage of urine, painful urination, blood in the urine, frequent uti's, history of stones, difficulty starting stream, weak stream/scanty, and bedwetting. VITAL SIGNS: 10/09/2018 10:36 AM Weight 155 lb / 70.31 kg Height 62.5 in / 158.75 cm BP 126/70 mmHg BMI 27.9 kg/m? - BMI Counseling was provided. MULTI-SYSTEM PHYSICAL EXAMINATION: Constitutional: Well-nourished. No physical deformities. Normally developed. Good grooming. Neck: Neck symmetrical, not swollen. Normal tracheal position. Respiratory: No labored breathing, no use of accessory muscles. Cardiovascular: Normal temperature, normal extremity pulses, no swelling, no varicosities. Lymphatic: No enlargement of neck, axillae, groin. Skin: No paleness, no jaundice, no cyanosis. No lesion, no ulcer, no rash. Neurologic / Psychiatric: Oriented to time, oriented to place, oriented to person. No depression, no anxiety, no agitation. Gastrointestinal: No mass, no tenderness, no rigidity, non obese abdomen. Eyes: Normal conjunctivae. Normal eyelids. Ears, Nose, Mouth, and Throat: Left ear no scars, no lesions, no masses. Right ear no scars, no lesions, no masses. Nose no scars, no lesions, no masses. Normal hearing. Normal lips. Musculoskeletal: Normal gait and station of head and neck. PAST DATA REVIEWED: Source Of History: Patient 01/24/17 10/24/15 04/14/12 11/09/11 02/05/11 02/14/09 11/24/07 05/27/06 PSA Total PSA 3.69 ng/mL 5.48 mg/dl 3.7 mg/dl 3.49 mg/dl 4.64 mg/dl 3.5 mg/dl 3.8 mg/dl 3.6 mg/dl Notes [facility] [address] [place], [address] This test was performed using the TPSA assay method for the [employer] chemistry system. Values obtained with different assay methods cannot be used interchangably. When changing PSA assays in the course of monitoring a patient, additional sequential testing should be carried out to confirm baseline values. 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 Plan to set him up for the operating room for cystoscopy for resection of the sites and cauterization mitomycin C installation then after this will start mitomycin C treatments.
[2018-10-27] MEDS: Cefazolin 2 GM in 0.9% Normal Saline 100 ML IV (14:51)
--- NOTE | 2018-10-27 14:58 | DCINST_ITS ---
Discharge Diet: No Restrictions Discharge Activity: Return to Normal Activity, May Not Drive - for 2 days. Additional Activity Instructions:: f you have a catheter, remove on ___. If you have any problems after catheter is removed, call [phone] and ask for your doctor to be paged. Please be aware that pain medications may cause nausea. You should typically eat light foods as you take your pain medication. Pain medication may cause constipation, if this is a problem for you, please discuss with your doctor. Instructions: Treating Bladder Cancer: TUR (Transurethral Resection) Allergies/Adverse Reactions: Allergies ciprofloxacin [From Cipro] Allergy (Intermediate, Verified 10/17/18 10:10) muscle aches Medications to take at Discharge ascorbic acid (vitamin C) 1,000 mg tablet 1 tab PO DAILY tab 02/10/18 multivitamin tablet 1 tab PO DAILY 02/10/18 tadalafil 20 mg tablet 20 mg PO DAILY PRN #3 tab 02/10/18 Amlodipine/Atorvast Bari [Caduet 10 MG-20 MG Tablet] 1 tab PO DAILY 10/17/18 Fluticasone 0.05% [Flonase Nasal [place]] 2 spray NASAL DAILY 10/17/18 L.acidoph,Paracasei, B.lactis [Probiotic] 1 each PO DAILY 10/17/18 Tamsulosin HCl [Flomax] 0.4 mg PO QHS 10/17/18 Turmeric [Turmeric Root] 500 gm MC DAILY 10/17/18 Cephalexin [Keflex] 500 mg PO TID #9 cap 10/27/18 Ibuprofen 600 mg PO Q6H PRN PRN #14 tab 10/27/18 The following prescriptions were given: Ibuprofen 600 mg PO Q6H PRN PRN #14 tab PRN Reason: Pain Cephalexin [Keflex] 500 mg PO TID #9 cap Primary Care Physician: Girma Payne DO [Primary Care Provider] - Test Results: Test results from this visit will be discussed in further detail at your follow- up appointment, if applicable. Please Follow Up With: Alex Cornell MD When: in 2 weeks, please call to make an appointment.
--- NOTE | 2018-10-27 15:18 | PCM.OPRPT ---
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 Description of Surgical Findings:: Cystoscopy, bluelight cystoscopy transurethral resection of left lateral wall with carcinoma in situ Indication this is a 68-year-old male who in the office with a cystoscopy bladder biopsy came back with carcinoma in situ he has a history of bladder cancer. Today we have taken the operating room to cauterize the area extensively this would be done in the anesthesia. Biopsy the office from the lateral wall came back positive the carcinoma in situ. 68-year-old male was taken back to the operating room at the smooth induction of general anesthesia he was placed in dorsolithotomy position the penis testicles are prepped and draped the usual sterile fashion went into the bladder the 24 German resectoscope switched over the blue I cystoscopy the advanced all the entire bladder could see scar tissue in the left side but this did not light up but on the left side of the bladder upper side left lateral wall area lit up on bluelight cystoscopy and then used the resectoscope to cauterize this area extensively resected and cauterized in the area there was no specimen since it was very shallow resection. Did not appear to be invasive tumor but just to be a carcinoma in situ after cauterizing this area no other areas were seen were cancers at this point I do not think any further therapies will be necessary we talked about in the office doing possibly BCG or mitomycin-C but given the area was extensively cauterized I think we can continue with just observation he was given a dose of mitomycin-C at the end of the treatment and tolerated procedure well was taken back to PACU good condition. Type of Anesthesia:: General Specimen's removed: None - Admit VTE Documentation VTE Present on Admission: No VTE Mechan Device Prophylaxis: SCD's
[2018-10-27 15:30] VITALS: BP 143/93; BP 146/84; BP 153/86; PULSE 92; PULSE 93; RESP 16; TEMP 36.9; O2SAT 92
[2018-10-27 15:45] VITALS: BP 142/84; BP 143/93; PULSE 87; RESP 16; O2SAT 93
[2018-10-27 15:52] VITALS: BP 143/93; BP 153/87; PULSE 71; RESP 16; TEMP 36.7; O2SAT 93
[2018-10-27 16:36] VITALS: BP 142/80; BP 143/93; PULSE 80; RESP 18; TEMP 36.7; O2SAT 94
== END 2018-10-27 16:41 | disposition home or self-care (01) ==
LOC: SDC 12:46 → AC 12:46
PROVIDERS: Family Provider Family Medicine; PCP Family Medicine; Referring Provider Urology; Visit Provider Urology
PROC: 0TBB8ZZ Excision of Bladder, Via Natural or Artificial Opening Endoscopic (ICD-10-PCS; CPT 52234; principal; 2018-10-27 14:30)
DX: D09.0 Carcinoma in situ of bladder (principal); N40.1 Benign prostatic hyperplasia with lower urinary tract symptoms; R35.1 Nocturia; R33.8 Other retention of urine; I10 Essential (primary) hypertension; E78.00 Pure hypercholesterolemia, unspecified; Z85.51 Personal history of malignant neoplasm of bladder
CPT/HCPCS: 00912; 52234; 93005; J7120; J2405; J3490; J9280

== ENCOUNTER → 2018-11-06 10:12 | Outpatient (CLI) | payer MEDICARE, OTHER, SELFPAY ==
[2018-10-27 13:10] VITALS: BMI 29.5
--- NOTE | 2018-11-06 10:16 | RAD_ITS ---
STUDY: X-RAY - RIGHT KNEE REASON FOR EXAM: Male, 68 years old. Chronic left knee pain TECHNIQUE: 4 view view(s) of the knee. COMPARISON: None. FINDINGS: There is moderate osteoarthritis of the left knee demonstrated by narrowing of the medial compartment of the knee joint, spurs from the tibial and femoral condyles and from the margins of the patella. There are no fractures or dislocations and no knee joint effusion. The quadriceps and patellar tendons are normal. RAD/Knee 4 or More Views IMPRESSION: Moderate osteoarthritis of the left knee. No fracture Electronically Signed: Fabian Baez MD at 3:31 EDT Tel , Service support ,
--- NOTE | 2018-11-06 10:16 | RAD_ITS ---
STUDY: X-RAY - LEFT KNEE REASON FOR EXAM: Male, 68 years old. Chronic pain TECHNIQUE: 4 view(s) of the knee. COMPARISON: None. FINDINGS: Normal visualized distal femur. Normal visualized proximal tibia and fibula. Normal proximal tibiofibular articulation. There is no demonstrated fracture. There is severe degenerative arthrosis of the medial femorotibial compartment with severe joint space narrowing. Normal lateral femorotibial compartment. There is mild degenerative arthrosis of the patellofemoral articulation. The soft tissue structures are unremarkable. RAD/Knee 4 or More Views IMPRESSION: No acute fracture or dislocation. Severe medial compartment degenerative disease. Electronically Signed: Heriberto Cartagena MD at 19:18 EDT , Service support ,
== END ==
PROVIDERS: Family Provider Family Medicine; PCP Family Medicine; Referring Provider Orthopaedic Surgery; Visit Provider Orthopaedic Surgery
DX: M17.0 Bilateral primary osteoarthritis of knee (principal)
CPT/HCPCS: 73564

== ENCOUNTER 2018-12-26 12:54 | Inpatient (IN) | payer MEDICARE, OTHER, SELFPAY ==
[2018-12-08 15:31] VITALS: BMI 29.5
[2018-12-26] VITALS (10 sets, daily range): BP systolic 103–161; BP diastolic 56–83; PULSE 74–106; RESP 14–18; TEMP 36.2–36.5; O2SAT 91–97; BMI 29.6; BMI 30.4
[2018-12-26] MEDS: Celecoxib 200 MG Capsule PO (13:46)
[2018-12-26] MEDS: oxyCODONE HCl Cr 10 MG Tablet PO (13:47)
[2018-12-26] MEDS: Acetaminophen 500 MG Tablet PO (13:47)
[2018-12-26] MEDS: Pregabalin 75 MG Capsule PO (13:47)
--- NOTE | 2018-12-26 13:58 | HP.PCM_ITS ---
History and Physical Date of Admission: 12/26/18 Intake Vital Signs 12/08/18 Body Mass Index (BMI) 29.5 Intake Visit Reasons: SIGN SURGERY CONSENT Chief Complaint: hypertension Allergies ciprofloxacin [From Cipro] Allergy (Intermediate, Verified 10/17/18 10:10) muscle aches PFSH Medical History (Updated 10/27/18 @ 15:21 by Alex Cornell MD) Arthritis (Acute) Bladder cancer (Acute) High cholesterol (Acute) Hypertension (Chronic) Surgical History (Updated 10/27/18 @ 15:21 by Alex Cornell MD) History of bladder surgery (Acute) Family History (Updated 02/10/18 @ 11:30 by Brenda Harrington) Father Hypertension CVA (cerebral vascular accident) Kidney disease High cholesterol Social History (Updated 12/09/18 @ 13:15 by DAYANA Templeton) Smoking Status: Never smoker alcohol intake: never what type of physical activity do you participate in: bicycling HPI SIGN SURGERY CONSENT: Details: Parts of this documentation were recorded by a scribe, this documentation accurately reflects the service provided and the decisions made by meRemi PA 12/08/18 [id number]. FERNANDO DE LA FUENTE is a 68 year old M here today to sign surgery consent for TKA. Patient has no changes in medications or pain. Denies numbness, tingling or other associated symptoms. ROS Const Reports system reviewed and no additional complaints, except as docu Eyes Reports system reviewed and no additional complaints, except as docu ENT Reports system reviewed and no additional complaints, except as docu Card Reports system reviewed and no additional complaints, except as docu Resp Reports system reviewed and no additional complaints, except as docu GI Reports system reviewed and no additional complaints, except as docu Reports system reviewed and no additional complaints, except as docu Musc Reports system reviewed and no additional complaints, except as docu, Reports as per HPI Skin/Breast Reports system reviewed and no additional complaints, except as docu Neuro Yes system reviewed and no additional complaints, except as docu Psych Reports system reviewed and no additional complaints, except as docu Endo Reports system reviewed and no additional complaints, except as docu Hubert/Lymph Reports system reviewed and no additional complaints, except as docu Aller/Immun Reports system reviewed and no additional complaints, except as docu Ortho Exam Right Knee Skin/Wound: No swelling Knee ROM: No ROM-Extension -20 to 0 (5), No ROM-Flexion 0-140 (approx 80) Examination: Yes Med jt line tenderness, No Lat jt line tenderness, Yes Crepitus, Yes Pain with extention Patella Grind: Yes Assessment & Plan Problems 1. Primary osteoarthritis of right knee M17.11 Plan Patient presents to the office today to sign consent as he is now within the 30- day with though. Patient has not had any changes in his symptoms or his physical exam. Patient had already discussed the procedure in depth with the surgeon at his last visit however we did go over the procedure including all the risks and benefits of the procedure. Patient is aware of these risks and benefits and consent was signed in office today. We discussed preanesthesia testing via telephone. Patient was given surgical scrub to use the night before and morning of. We also discussed surgery times that will be given the day before his surgery. At this time patient has no other questions and still wishes to proceed with right knee total arthroplasty. He can notify the office sooner if he has any other questions in the meantime. This note was generated with [employer] dictation software. It may contain incorrect words, spelling, and punctuation that were not noted in checking the note before signing. Coding Level of Care Code Off vis,est,level 2 Diagnoses Primary osteoarthritis of right knee M17.11 I have re-examined the patient. There are no clinical changes since date of exam
[2018-12-26] MEDS: Cefazolin 2 GM in 0.9% Normal Saline 100 ML IV ×2 (15:26→23:21)
[2018-12-26] MEDS: Bupivacaine 0.5% PF 10 ML VIAL (16:40)
[2018-12-26] MEDS: Morphine 4 MG/ML Syringe (16:40)
[2018-12-26] MEDS: Epinephrine (1 mg/ml) 1 MG/ML VIAL (16:40)
--- NOTE | 2018-12-26 17:25 | PCM.OPRPT ---
Report of Operation Date of Procedure: 12/26/18 Description of Surgical Findings:: Preoperative diagnosis: Right knee DJD Postoperative diagnosis: Same Procedure: Right total knee arthroplasty Implant: [place] triathlon cemented right femoral component size 4, cemented tibial baseplate size 4, cemented asymmetric patella size 32, polyethylene X3 size 9 CS Anesthesia: Spinal with adductor canal block Tourniquet time: 76 minutes at 300 mmHg Complications: None Condition: Stable to PACU Estimated blood loss: 25 cc Indication for procedure: This is a this is a 68-year-old male patient with long standing degenerative joint disease of the knee who with flexion contracture and stiffness of knee flexion only to 85 degrees extension lacking 15 has failed conservative treatment and wished to proceed with elective total knee arthroplasty. Risk benefits and alternatives were reviewed including; risk of bleeding, infection, nerve artery and tissue damage, continued pain, postoperative stiffness, venous thromboembolism, need for postoperative rehabilitation, mechanical feel to the knee, and expected postoperative course. Procedure: The patient was met in the preoperative holding area. The operative extremity was identified by both patient and physician and was marked. Patient was met by anesthesia. An adductor canal block was placed by anesthesia postoperatively the patient was brought back to the operating room on a wheeled cart and transferred to the operating table in the supine position. Anesthesia was started. A well-padded tourniquet was placed on the operative extremity. The patient was prepped and draped in the usual sterile fashion. A timeout was called to ensure the proper patient procedure and extremity were being contemplated. An Esmarch was used to exsanguinate the extremity. The tourniquet was inflated. A 10 blade scalpel was used to make a midline incision down through the skin and subcutaneous tissue. Skin retractors placed. Bovie was used to perform meticulous hemostasis. full-thickness flaps were elevated medial and lateral along the joint capsule. A deep blade scalpel was used to perform a medial parapatellar arthrotomy. The knee was brought to full extension. A Bovie was used to release the soft tissues off the most proximal aspect of the medial tibial plateau a three-quarter inch curved osteotome was also used for this process. The infrapatellar fat pad was excised. The fat pad was excised partially anterior lateral portion the anterior medial was elevated from the femur. the patella was everted. The knee was brought into flexion. An intramedullary drill was used followed by flexible intramedullary guide lyndsey. The distal femoral cutting block was placed and set to remove 10 mm of bone and 5 degrees of valgus. The block was secured with pins and an oscillating saw was used to complete the distal femoral cut. During this, and all bony cuts retractors were used to protect the collateral ligaments. At this point a femoral sizer was used to measure the AP dimension of the femur. The sizer block was pinned in 3 degrees of external rotation. The sizing block was removed and the appropriately sized 4-in-1 cutting block was placed over the previously made pinholes. It was checked with an angélica wing and the block was secured with pins. An oscillating saw was used to complete the anterior cut followed by the posterior cut followed by the posterior chamfer cut followed by the anterior chamfer cut. The block was removed as well as the fragments. A ronguer was used to remove excess osteophytes. The medial and lateral meniscus were excised as well as the ACL. At this point a PCL retractor was placed and an intramedullary drill was passed down the tibial canal followed by a solid intramedullary guide lyndsey. The tibial cutting block was attached and set to remove 9 mm of bone from the high side. This was checked with an external alignment drop lyndsey for slope and tilt. It was pinned into place. An oscillating saw was used to complete the tibial plateau cut and the block was removed. A large osteotome was used to elevate the fragment and a Erik and a Bovie were used to free the fragment from the surrounding soft tissue. A rongeur was once again used to remove osteophytes a lamina medical records receptionist was used to evaluate the posterior capsular structures. A three-quarter inch curved osteotome was used to remove posterior osteophytes. A spacer block was inserted in both extension and flexion to ensure adequate spacing. Trials were inserted full extension and flexion were achieved in varus and valgus stability throughout range of motion were seen, balancing techniques were performed. At this point the attention was turned towards the patella. A caliper was used to ensure sufficient bone stock to remove 10 mm of bone. A reamer was used to perform this task. Lug holes were made for the appropriate-sized patella. The patella trial was inserted and there was good patellar tracking with knee range of motion. The tibial baseplate was allowed to float into rotation and was marked on the tibial plateau with a Bovie. Lug holes were made in the femur and trials were removed. The tibial baseplate was then sized and its preparation was completed with a fin punch. The knee was thoroughly irrigated. A posterior capsular injection was performed with our standard cocktail. The knee was brought into flexion and irrigated again. The tibial baseplate was cemented. Excess cement was removed with curettes. The polyethylene component was inserted. The femoral component was cemented. The knee was brought into full extension and placed on a bump. The patellar component was cemented. At this point a Betadine rinse was placed and thoroughly irrigated after a few minutes. This was followed by an Iricept rinse which was allowed to sit for 1 minute and then thoroughly irrigated.At this point all gloves were changed. The knee was thoroughly irrigated the joint capsule was closed with #1 Ethibond. Tourniquet was let down followed by 0 Vicryl and 2-0 Vicryl in the subcutaneous tissues. followed by michelle in the skin. Dressing was applied in the form of Xeroform 4 x 4 ABD web roll and an Aiden wrap from the foot to the groin. The patient tolerated the procedure well, all counts were correct patient was brought back to the PACU in stable condition.
--- NOTE | 2018-12-26 17:45 | RAD_ITS ---
STUDY: X-RAY - RIGHT KNEE REASON FOR EXAM: Male, 68 years old. Postop TECHNIQUE: 2 view(s) of the knee. COMPARISON: None. FINDINGS: There is a 3 part right knee arthroplasty which appears to be in anatomic position and alignment with overlying subcutaneous gas and skin michelle. RAD/Knee 1 or 2 Views IMPRESSION: New right knee arthroplasty. Electronically Signed: Gail Tang MD at 22:54 EDT Tel , Service support ,
[2018-12-26] MEDS: Ketorolac 15 MG/ML Vial IV (17:57)
[2018-12-26] MEDS: Acetaminophen 500 MG Tablet 1000 MG PO (23:21)
[2018-12-26] MEDS: Senna/Docusate Sodium 1 Tablet 2 TABLET PO (23:21)
[2018-12-27] VITALS (7 sets, daily range): BP systolic 114–135; BP diastolic 54–71; PULSE 70–94; RESP 16; TEMP 36.6–37.4; O2SAT 80–97
[2018-12-27] MEDS: Lactated Ringers 1,000 ML 125 ML IV (02:15)
[2018-12-27] MEDS: Acetaminophen 500 MG Tablet 1000 MG PO ×3 (05:27→22:28)
[2018-12-27 05:55] LABS: Hematocrit 35.9 % (40-54); Hemoglobin 11.4 g/dl (13.0-16.5); Mean Corp Hgb Conc 31.8 g/gl (32-36); Mean Corpuscular Volume 97.6 fL (80-94); Mean Platelet Vol. 10.3 fl (6.2-12.0); Platelet Count 285 K/mm3 (150-450); RBC Distribution Width CV 14.1 % (11.6-14.6); RBC Distribution Width SD 50.5 fl (35.1-43.9); Red Blood Count 3.68 M/mm3 (4.6-6.2)
[2018-12-27 06:08] LABS: Scan Indicated on CBC? Y/N NO
[2018-12-27 06:24] LABS: Anion Gap 7 (5-15); BUN 23 mg/dL (7-18); BUN/Creat Ratio 15.4 RATIO (10-20); Calcium,Total 7.8 mg/dL (8.5-10.1); Chloride 106 mmol/L (98-107); Creatinine, Serum 1.49 mg/dL (0.70-1.30); EST Glomerular Filtration Rate 50 mL/min (>60); Est Glom Filt Rate - Afr Amer 60 mL/min (>60); Estimated Creatinine Clearance 36.64 ml/min; Glucose 105 mg/dL (74-106); Potassium 5.7 mmol/L (3.5-5.1); Sodium Level 139 mmol/L (136-145)
--- NOTE | 2018-12-27 06:34 | PCM.PN.ORT ---
Subjective: Doing well pain controlled was able to sleep. Has not been able to urinate or pass any gas at this point although he did denies any abdominal pain we will require straight catheterization last night - Physical Exam General: Alert, Oriented x3, No apparent distress Extremities: - - Dressing clean dry and intact compartment soft neurovascular intact Vital Signs Temp Pulse Resp BP Pulse Ox 98.3 F 94 16 121/68 H 97 12/27/18 05:20 12/27/18 05:20 12/27/18 05:20 12/27/18 05:20 12/27/18 05:20 Oxygen Flow Rate (L/min) 2 Oxygen Delivery Method Room Air Weight: 169 lb 5.04 oz Body Mass Index (BMI) 30.4 Intake and Output for Last 24 Hours 12/25/18 12/26/18 12/27/18 23:59 23:59 23:59 Intake Total 2755 / 2755 1372 / 1372 Output Total 550 / 550 Balance 2755 / 2755 822 / 822 Laboratory Tests Past 24 Hrs 12/27/18 12/27/18 05:24 05:24 WBC 12.0 H RBC 3.68 L Hgb 11.4 L Hct 35.9 L MCV 97.6 H MCH 31.0 MCHC 31.8 L RDW 14.1 RDW Differential 50.5 H Plt Count 285 MPV 10.3 Sodium 139 Potassium 5.7 H Chloride 106 Carbon Dioxide 26.0 Anion Gap 7 BUN 23 H Creatinine 1.49 H Estim Creat Clear Calc 36.64 Est GFR (MDRD) Af Amer 60 Est GFR (MDRD) Non-Af 50 L BUN/Creatinine Ratio 15.4 Glucose 105 Calcium 7.8 L Medical Necessity - Tobacco Use Smoking Status: Never smoker Assessment/Plan Stop day #1 right total knee arthroplasty Pain controlled. Eliquis 2.5 mg twice daily for 2 additional weeks Will continue to monitor for bowel movement protocol and if he continues to have urinary retention we may require Winters catheterization to be sent follow up with urology DC planning possibly today versus tomorrow Dressing to be changed prior to discharge
--- NOTE | 2018-12-27 06:36 | PCM.DC.ORTHO ---
Discharge Diet: No Restrictions Call your doctor if you observe: Fever of 101 or Higher, Shortness of breath, Chest pain Additional Dressing/Incision Instructions:: Ice and elevate next week while not ambulating. Encourage ambulation weightbearing as tolerated. Encourage FULL knee extension and flexion 1 time EVERY time you get up and down and MULTIPLE times per day. Begin showering postop day #3. Remove the dressing prior to shower gently wash with warm water and antibacterial soap then pat dry place ABD pad and YOLANDA hose over top. This is to be done daily. If not showering daily must clean incision and change dressing daily. Do not allow animals near incision keep clean. Follow anticoagulation recommendations. Call Dr. Harkins with any concerns. Allergies/Adverse Reactions: Allergies ciprofloxacin [From Cipro] Allergy (Intermediate, Verified 12/19/18 13:22) muscle aches Medications to take at Discharge ascorbic acid (vitamin C) 1,000 mg tablet 1 tab PO DAILY tab 02/10/18 multivitamin tablet 1 tab PO DAILY 02/10/18 tadalafil 20 mg tablet 20 mg PO DAILY PRN #3 tab 02/10/18 Amlodipine/Atorvast Bari [Caduet 10 MG-20 MG Tablet] 1 tab PO DAILY 10/17/18 Fluticasone 0.05% [Flonase Nasal [place]] 2 spray NASAL DAILY PRN 10/17/18 L.acidoph,Paracasei, B.lactis [Probiotic] 1 each PO DAILY 10/17/18 Tamsulosin HCl [Flomax] 0.4 mg PO DAILY 10/17/18 Turmeric [Turmeric Root] 500 gm MC DAILY 10/17/18 Ibuprofen 600 mg PO Q6H PRN PRN #14 tab 10/27/18 Primary Care Physician: Girma Payne DO [Primary Care Provider] - Test Results: Test results from this visit will be discussed in further detail at your follow-up appointment, if applicable. Please Follow Up With: Miguel Harkins DO - 2 weeks
[2018-12-27] MEDS: Cefazolin 2 GM in 0.9% Normal Saline 100 ML IV (06:55)
[2018-12-27] MEDS: Senna/Docusate Sodium 1 Tablet 2 TABLET PO ×2 (07:27→22:28)
[2018-12-27] MEDS: APIXABAN 2.5 MG TABLET PO ×2 (07:28→22:28)
[2018-12-27] MEDS: Atorvastatin Calcium 20 MG Tablet PO (07:28)
[2018-12-27] MEDS: amLODIPine 10 MG Tablet PO (07:28)
[2018-12-27] MEDS: Ascorbic Acid 500 MG Tablet 1000 MG PO (07:28)
--- NOTE | 2018-12-27 08:02 | NURSING ---
pt resting in bed sats 80% on ra. place 2l nc on pt while sleeping
--- NOTE | 2018-12-27 09:50 | CASEMGMT ---
Addendum entered by Khadijah Benites 12/27/18 16:14: Elli @ [facility] made aware pt will not be discharging today and anticipate pt to discharge tomorrow. Original Note: RN CM RUBBER MOULDING MACHINE OPERATOR CM to room to meet with patient for initial transition planning/care coordination assessment. RN BOWEN introduced self and role at [facility]. Pt voices understanding and consents to assessment at this time. Pt resting in bed in no distress at this time. Pt is A/O at this time and answers all questions appropriately. Care providers, pharmacy, and demographics verified/updated at this time. PCP: Girma Payne Specialists: Bushra Becker Pharmacy: [facility] Insurance: [facility], MMO Prescription Benefit: [employer] Living Will/HPOA: Has both LW and HCPOA, who is his son, Dilan BLOOM: Living Arrangements: Lives with in one-story home w/one step to enter. Was independent with all ADL's prior to admission. is able to help @ D/C Transportation: Pt drove prior to surgery. will transport @ D/C DME: States has the following DME: built-in shower seats, cane, walker. Pt states no need for further DME at this time. HHC/SNF: No hx HHC or SNF. Would like HHC @ D/C. Prefers [facility]. Call placed to Elli @ [facility] and referral made for PT and OT eval and treat. She states they are able to accept pt. Pt wishes to return home and states has no concerns with going home at time of discharge. CM to follow for further discharge planning/needs. Pt voices no further concerns/needs at this time. Advised pt to ask for CM if any further questions/concerns/needs arise. Voices understanding. PLAN: Home with HHC: PT and OT. Jose KING RN, CM
[2018-12-27] MEDS: oxyCODONE 5 MG Tablet PO ×3 (11:10→19:50)
--- NOTE | 2018-12-27 15:12 | CHAPLAIN ---
Type of Pastoral Visit _x__ Initial Visit ___ Follow-up Visit ___ On-call Visit ___ General Patient Visit ___ Spiritual Assessment ___ Family Conference ___ Bereavement ___ Rapid Response ___ Code Blue ___ Other (describe below) Pastoral Care Referral From _x__ Patient ___ Family ___ Nurse ___ Physician ___ Vest Finisher ___ Wheel Adjuster ___ Other (describe below) Sacrament/Intervention _x__ Active listening ___ Anointing ___ Sikh ___ Bereavement ___ Communion ___ Evelyn exploration ___ _x__ Life review _x__ Prayer ___ Reconciliation ___ Sacrament of Sick ___ Supportive presence ___ Wedding ___ Other (describe below) Pastoral Comments
--- NOTE | 2018-12-27 15:45 | NURSING ---
pt stated he would like to stay tonight because his o2 sats drop at hs. dr quiroz notified and aware pt is staying.
[2018-12-27] MEDS: Tamsulosin HCl 0.4 MG Capsule PO (17:16)
[2018-12-28 02:30] VITALS: BP 134/89; PULSE 80; RESP 16; TEMP 37.3; O2SAT 99
[2018-12-28] MEDS: oxyCODONE 5 MG Tablet PO ×2 (02:52→10:19)
[2018-12-28 05:26] LABS: Hematocrit 35.5 % (40-54); Hemoglobin 11.4 g/dl (13.0-16.5); Mean Corp Hgb Conc 32.1 g/gl (32-36); Mean Corpuscular Hgb 30.5 pg (27.0-32.0); Mean Corpuscular Volume 94.9 fL (80-94); Mean Platelet Vol. 10.8 fl (6.2-12.0); Platelet Count 257 K/mm3 (150-450); RBC Distribution Width CV 13.7 % (11.6-14.6); RBC Distribution Width SD 45.3 fl (35.1-43.9); Red Blood Count 3.74 M/mm3 (4.6-6.2); White Blood Count 8.9 K/mm3 (4.4-11.0)
[2018-12-28] MEDS: Acetaminophen 500 MG Tablet 1000 MG PO (05:28)
[2018-12-28 05:30] LABS: Scan Indicated on CBC? Y/N NO
[2018-12-28 05:43] VITALS: TEMP 36.6
[2018-12-28 08:58] VITALS: BP 141/71; PULSE 83; RESP 16; TEMP 37.3; O2SAT 94
[2018-12-28] MEDS: amLODIPine 10 MG Tablet PO (09:04)
[2018-12-28] MEDS: Senna/Docusate Sodium 1 Tablet 2 TABLET PO (09:04)
[2018-12-28] MEDS: Atorvastatin Calcium 20 MG Tablet PO (09:05)
[2018-12-28] MEDS: Ascorbic Acid 500 MG Tablet 1000 MG PO (09:05)
[2018-12-28] MEDS: APIXABAN 2.5 MG TABLET PO (09:05)
--- NOTE | 2018-12-28 09:12 | CASEMGMT ---
FACUNDO CM NOTE: Eliquis has been e-scribed to [facility]. Call placed for graham check. Cost is $89. Eliquis savings card applied. Cost for pt is now $0. Call placed to Elli @ [facility] and she was made aware pt is discharging today. She states plan is for start of care tomorrow 12/29. Pt made aware of the above. Jose KING RN CM
[2018-12-28 09:15] VITALS: PULSE 92; O2SAT 94
== END 2018-12-28 10:31 | disposition home health service (06) | DRG 470 ==
LOC: MS3 12-27 11:00 → ACINP 12-27 15:26 → MS3 12-27 15:26
PROVIDERS: Admitting Provider Orthopaedic Surgery; Family Provider Family Medicine; PCP Family Medicine; Referring Provider Family Medicine; Visit Provider Orthopaedic Surgery
PROC: (CPT 27447; principal; 2018-12-26 14:40)
DX: M17.11 Unilateral primary osteoarthritis, right knee (principal); I10 Essential (primary) hypertension
CPT/HCPCS: 36415; 73560; 80048; 85027; 87081; 97110; 97162; 97166; 97530; 97535; C1776; J7120; J2405; J3490

== ENCOUNTER 2019-02-08 07:30 | Day surgery (SDC) | payer MEDICARE, OTHER, SELFPAY ==
[2019-02-05 07:53] VITALS: BMI 30.4
[2019-02-08] VITALS (7 sets, daily range): BP systolic 114–129; BP diastolic 65–78; PULSE 81–87; RESP 16–17; TEMP 36.5–37.2; O2SAT 94–98; BMI 28.8
[2019-02-08] MEDS: Lactated Ringers 1,000 ML 100 ML IV (08:17)
--- NOTE | 2019-02-08 08:24 | PCM.HP.BLA ---
History and Physical Date of Admission: 02/08/19 Intake Vital Signs 02/05/19 Body Mass Index (BMI) 30.4 Intake Visit Reasons: Right Knee Chief Complaint: 6 Mo FU Allergies ciprofloxacin [From Cipro] Allergy (Intermediate, Verified 12/19/18 13:22) muscle aches PFSH Medical History (Updated 10/27/18 @ 15:21 by Alex Cornell MD) Arthritis (Acute) Bladder cancer (Acute) High cholesterol (Acute) Hypertension (Chronic) Surgical History (Updated 01/16/19 @ 11:12 by Brenda Harrington) History of bladder surgery (Acute) History of total right knee replacement (TKR) (Acute) Family History (Updated 02/10/18 @ 11:30 by Brenda Harrington) Father Hypertension CVA (cerebral vascular accident) Kidney disease High cholesterol Social History (Updated 02/05/19 @ 14:19 by Miguel Harkins DO) Smoking Status: Never smoker alcohol intake: never what type of physical activity do you participate in: bicycling HPI Right Knee: Details: Parts of this documentation were recorded by a scribe, this documentation accurately reflects the service provided and the decisions made by me, Miguel Harkins DO 02/05/19 0753. FERNANDO DE LA FUENTE is a 69 year old M here today for f/u 12/26/18 right knee TKA. He is ambulating well and basically carrying his cane. He continues to lack extension and has approximately 85 active flexion but that at PT he did get 104. He is still wearing compression sleeve today as well. He has no complaints of pain other than with flexion. Ortho Exam Right Knee Date of Surgery: 12/26/18 Skin/Wound: No erythema, No ecchymosis, No swelling Homans Sign: No Knee ROM: No ROM-Extension -20 to 0 (12), No ROM-Flexion 0-140 (80) Examination: No Med jt line tenderness, No Lat jt line tenderness Stability: NML: Valgus 30, NML: Varus 0 KNEE: Incision well approximated no sign of infection Supplemental Info 11/06/2018 x-ray left knee: [id number]-hs-[id number] medial compartment with varus deformity moderate lateral and patellofemoral compartment arthritis 11/06/2018 x-ray right: Severe tricompartmental DJD [id number] with large bone spurs and joint space collapse Assessment & Plan Problems 1. 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 It is possible that due to his preoperative stiffness we may have hard time achieving full flexion however I do think he can get further flexion and would aid for manipulation at this point Reviewed the pre-operative plans with the patient. Risks and benefits of the procedure were fully explained, including but not limited to tendon rupture fracture infection, neurovascular injury, continued pain, arthritis, stiffness, need for further surgery, re-injury, DVT, PE, general risks of anesthesia, and loss of limb or life. The patient understands all the risks and does wish to proceed with written consent. Follow up in 4 weeks or sooner if pain, swelling, numbness or associated symptoms, or concerns develop. All questions answered. Patient in agreement of plan. 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 There are no clinical changes since date of exam
[2019-02-08 08:53] LABS: Potassium 4.2 mmol/L (3.5-5.1)
[2019-02-08] MEDS: Tamsulosin HCl 0.4 MG Capsule PO (08:54)
[2019-02-08] MEDS: Cefazolin 2 GM in 0.9% Normal Saline 100 ML IV (09:25)
[2019-02-08] MEDS: Bupiv/Epi 0.25% 30 ML Vial (09:40)
[2019-02-08] MEDS: MethylPREDNISolone Acetate 80 MG/ML Vial (09:40)
--- NOTE | 2019-02-08 09:51 | PCM.DC.ORTHO ---
Discharge Diet: No Restrictions Discharge Activity: Return to Normal Activity Weight Bearing Status: Weight bearing as tolerated Additional Instructions: Weightbearing as tolerated. Encourage full knee extension and flexion immediately. Resume physical therapy immediately. Pain medication as prescribed. May shower. Call with any concerns. Allergies/Adverse Reactions: Allergies ciprofloxacin [From Cipro] Allergy (Intermediate, Verified 02/08/19 08:04) muscle aches Medications to take at Discharge ascorbic acid (vitamin C) 1,000 mg tablet 1 tab PO DAILY tab 02/10/18 multivitamin tablet 1 tab PO DAILY 02/10/18 tadalafil 20 mg tablet 20 mg PO DAILY PRN #3 tab 02/10/18 Amlodipine/Atorvast Bari [Caduet 10 MG-20 MG Tablet] 1 tab PO DAILY 10/17/18 Fluticasone 0.05% [Flonase Nasal [place]] 2 spray NASAL DAILY PRN 10/17/18 L.acidoph,Paracasei, B.lactis [Probiotic] 1 ea PO DAILY 10/17/18 Tamsulosin HCl [Flomax] 0.4 mg PO DAILY 10/17/18 hydrocodone 5 mg-acetaminophen 325 mg tablet 1 tab PO Q4H PRN #56 tab 01/08/19 Acetaminophen [Tylenol] 1,000 mg PO Q8 PRN 02/07/19 Hydrocodone Bitart/Apap 5-325 [[place] 5MG-325MG] 1 - 2 tablet PO Q4H PRN PRN 5 Days #30 tablet 02/08/19 The following prescriptions were given: Hydrocodone Bitart/Apap 5-325 [[place] 5MG-325MG] 1 - 2 tablet PO Q4H PRN PRN 5 Days #30 tablet PRN Reason: Pain Transmission Status: Sent to [id number] Primary Care Physician: Girma Payne DO [Primary Care Provider] - Test Results: Test results from this visit will be discussed in further detail at your follow-up appointment, if applicable. Please Follow Up With: Miguel Harkins DO - 4 weeks
--- NOTE | 2019-02-08 09:52 | PCM.OPRPT ---
Report of Operation Date of Procedure: 02/08/19 Description of Surgical Findings:: Preoperative diagnosis: Arthrofibrosis right knee, DJD left Postoperative diagnosis: Same Procedure: Manipulation under anesthesia with intra-articular steroid injection of bilateral knees Anesthesia: General EBL: None Complications: None Condition: Able to PACU Indication for procedure: This is a 69-year-old male who underwent total knee arthroplasty approximately 6 weeks ago who is failed to gain her range of motion wish to undergo an elective manipulation under anesthesia to increase range of motion. He did have preoperative stiffness prior to his total knee .risk benefits and alternatives were reviewed including risk of bleeding infection nerve, artery, bone, tissue damage, blood clot need for further surgery and continued pain. Procedure: Patient was met in the preoperative holding area once again the operative extremity was identified by both patient and physician and was marked. Patient was brought back to the operating room anesthesia was started. A timeout was called into the proper patient procedure and extremity were being contemplated. The operative range of motion was 12 threes extension and achieving 80degrees flexion. After patient was adequately anesthetized extension manipulation was performed followed by patellar mobilization followed by gradual flexion scar tissue was palpated being released with no concerning signs for tendon rupture or fracture. Postoperative range of motion was much improved with 8 extension and 120 degrees of flexion.
[2019-02-08] MEDS: HYDROcodone Bitartrate/Apap 5/325 Tablet PO (10:32)
== END 2019-02-08 10:34 | disposition home or self-care (01) ==
LOC: SDC 07:31 → AC 07:32
PROVIDERS: Anesthesiology; Family Provider Family Medicine; PCP Family Medicine; Referring Provider Orthopaedic Surgery; Visit Provider Orthopaedic Surgery
PROC: (CPT 27570; principal; 2019-02-08 09:00)
DX: M24.661 Ankylosis, right knee (principal); M17.12 Unilateral primary osteoarthritis, left knee; I10 Essential (primary) hypertension; E78.00 Pure hypercholesterolemia, unspecified; N40.0 Benign prostatic hyperplasia without lower urinary tract symptoms; J30.2 Other seasonal allergic rhinitis; Z96.651 Presence of right artificial knee joint; Z79.899 Other long term (current) drug therapy
CPT/HCPCS: 20610; 27570; 36415; 84132; J7120

== ENCOUNTER → 2019-02-28 09:15 | Outpatient (CLI) | payer MEDICARE, OTHER, SELFPAY ==
[2019-02-05 07:53] VITALS: BMI 30.4
[2019-02-08 08:05] VITALS: BMI 28.8
[2019-02-28 10:25] LABS: PSA,Total - Annual Screen 8.96 ng/mL (0.00-4.00)
== END ==
PROVIDERS: Family Provider Family Medicine; PCP Family Medicine; Referring Provider Urology; Visit Provider Urology
DX: Z12.5 Encounter for screening for malignant neoplasm of prostate (principal)
CPT/HCPCS: 84153; G0103

== ENCOUNTER 2019-03-02 12:00 | Outpatient (RCR) | payer MEDICARE, OTHER, SELFPAY ==
[2019-01-08 13:51] VITALS: BMI 30.4
--- NOTE | 2019-01-15 13:54 | HP.PTEVAL ---
Patient's Visit Information FERNANDO DE LA FUENTE is a 68 year old M referred to Physical Therapy by Miguel Harkins DO with a diagnosis of s/p R tka. Date of Evaluation: 01/15/19 Physical Therapist: Deon Joshi DPT, OCS, CSCS - Visit Plan Frequency: 3x /Week Duration: 4-6 Weeks Plan: 3x/week for 3-6 weeks. Please start with aggressive knee flexion ROM, patellar mobs inf, stick rollout to quad and HS, prone hang knee ext stretch. may use MH. Progress to L knee and hip strength when flexion greater than 100. - Subjective Findings: R TKA on December 26, 2018. Going well by [place]. Needs to bend it more. Pain is minimal 0-/. 6/10 Transiently. HEP: bending in chair and strightening in chair, SLR, wfie bending knee. Had home health and did lunge stretch. Sleeping well now and knee not keeping him up. Using wh walker at all times but has cane. Has steps one at home and using L. Retired from [employer]. When heatlhy spends day in yardmowing and push mow. Not ately. Dressing self and bathrooma dn walk in shower on own. 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 - Pain L knee Pain Intensity (Out of 10): 0 Pain Intensity Range: 0, 5 - Objective Walks with wh walker I, knee flexing fairly well each step. With cane needs some VC at first to bend knee but I on firm flat surface. Able to ambulate and tolerate FGA without cane today but slower. Transfers are I. Knee aROM L -3 to 70 degrees with a stiff L patella. after stretching he moved -2 to 86 degrees. 6/10 pain at end range of stretching with firm end feel and muscle spasms. Hip strength 4/5 L and 4+ R. ankle strength 4+ B. Knee strength ext 3+ l and 4 R and knee curl is 3+ L and 4- R. HS mod tight B. - Balance Scores Functional Gait Assessment Score: 22 % Disability: 26.6700 - Goals Goal 1:: 0-110 AROM to facilitate steps Goal Time Frame: 4-6 Weeks Goal 2:: steps reciprocal without rail safe Goal Time Frame: 4-6 Weeks Goal 3:: Walk community without AD I without gait deviations Goal Time Frame: 4-6 Weeks Goal 4:: I approp HEP to minimize future problems adn maximize L strength to have R knee done eventually. Goal Time Frame: 4-6 Weeks - Rehabilitation Potential Physical Therapy Diagnosis: S/P R TKA stiffness. Rehabilitation Potential: Good - Anticipated Interventions Patient/Client Instruction: Educate patient on: Condition, Plan of Care For the Purpose of:: To decrease pain, To increase ROM, To increase tolerance to activity/condition/position, To improve gait and locomotor functions Therapeutic Exercise to Include: Strength training, Flexibilty training, Passive ROM, Active ROM For the Purpose of:: To decrease pain, To increase ROM, To improve muscle performance and motor function, To improve gait and locomotor functions Manual Therapy Techniques to Include: Scar massage, Passive ROM, Soft tissue mobilization For the Purpose of:: To decrease pain, To increase ROM Cryotherapy (ice pack, ice massage): Yes - after Thermo therapy (hot pack): Yes - prior For the Purpose of:: To decrease swelling/inflammation, To increase ROM Thank you for the opportunity to evaluate your patient. For Medicare and Medicare HMO plans, please review the plan of care and approve it. It will need to be FAXED BACK to us at [phone] for Medicare purposes. For Medicare only, by signing this I certify the plan of care. Please let me know if there are questions or concerns regarding this plan of care. Physician Signature: Date:
--- NOTE | 2019-02-05 10:57 | HP.PTREVAL ---
Miguel Harkins, DO, It has been my pleasure to treat FERNANDO DE LA FUENTE over the last 10 visits for s/p R tka. Please see the progress note below for an update on the physical therapy plan of care! Subjective: Doing wall slide at home adn it relaxes. No pain at all. Just quick transient pain with bending. Did bicycle at home this morning. Sleeping is OK limited more by other conditions. Using cane to get around longer distances but not much at home. Has not mowed the yard yet. Basic ADLs are normal. Still feels like he needs more ROM.. Steps at home are using L. Objective/Function: -2-87 AROM, then after stretching with strap can get to 98. Can get to 103 manually with great effort. This is tighter than I like for him. Strength is 4- R knee ext adn flexion with slight discomfort proximal incision. 4+ L knee. Patella still stiff in proximal -distal direction better after mobs. Motion improves qith manual but overall is slowly improved consistent with the length of his injury and ROM prior to surgery(according to patient.). Steps are reciprocal with rail and has some R LE abd to clear step. Still appropriate for cotninued therapy for patellar mobs, A/PROM and stretching, progression of strength/function. Plan Plan: 3x/week x 2-4 for manual patellar mobs, scar massage, APROM, quad stretch in prone adn prone hang and strength when steps are normal adn ROM >115. Fair prognosis. Goals Goal 1:: 0-110 AROM to facilitate steps Goal Time Frame: 4-6 Weeks Goal Progress: Progressing Goal 2:: steps reciprocal without rail safe Goal Time Frame: 4-6 Weeks Goal Progress: needs rail. Goal 3:: Walk community without AD I without gait deviations Goal Time Frame: 4-6 Weeks Goal Progress: Progressing Goal 4:: I approp HEP to minimize future problems adn maximize L strength to have R knee done eventually. Goal Time Frame: 4-6 Weeks Goal Progress: Goal Met, ROM Goal 5:: 0-115 aROM without pain to facilitate steps without pain. Goal Time Frame: 2-4 Weeks Goal Progress: NEW GOAL Anticipated Interventions Patient/Client Instruction: Educate patient on: Condition, Plan of Care For the Purpose of:: To decrease pain, To increase ROM, To increase tolerance to activity/condition/position, To improve gait and locomotor functions Therapeutic Exercise to Include: Strength training, Flexibilty training, Passive ROM, Active ROM For the Purpose of:: To decrease pain, To increase ROM, To improve muscle performance and motor function, To improve gait and locomotor functions Manual Therapy Techniques to Include: Scar massage, Passive ROM, Soft tissue mobilization For the Purpose of:: To decrease pain, To increase ROM Cryotherapy (ice pack, ice massage): Yes - after Thermo therapy (hot pack): Yes - prior For the Purpose of:: To decrease swelling/inflammation, To increase ROM Please do not hesitate to contact me at [phone] by phone or if you have questions or concerns regarding this new plan of care! Sincerely, Deon Joshi, DPT, OCS, CSCS
--- NOTE | 2019-02-09 12:24 | HP.PTREVAL ---
Miguel Harkins, DO, It has been my pleasure to treat FERNANDO DE LA FUENTE over the last 11 visits for s/p R tka. Please see the progress note below for an update on the physical therapy plan of care! Subjective: Had manip yesterday and got to 120 degrees. Feel great today. Objective/Function: -4 to 80 degrees to start today. Walking well and feeling good. can get to 103 by end of session. Same goals, fair prognosis Plan Plan: 3x/week for 2-4 weeks for rollout, patellar mobs and PROM AAROM, bike and focus on ROM/stretching. Goals Goal 1:: 0-110 AROM to facilitate steps Goal Time Frame: 4-6 Weeks Goal Progress: Progressing Goal 2:: steps reciprocal without rail safe Goal Time Frame: 4-6 Weeks Goal Progress: needs rail. Goal 3:: Walk community without AD I without gait deviations Goal Time Frame: 4-6 Weeks Goal Progress: Progressing Goal 4:: I approp HEP to minimize future problems adn maximize L strength to have R knee done eventually. Goal Time Frame: 4-6 Weeks Goal Progress: Goal Met, ROM Goal 5:: 0-115 aROM without pain to facilitate steps without pain. Goal Time Frame: 2-4 Weeks Goal Progress: NEW GOAL Anticipated Interventions Patient/Client Instruction: Educate patient on: Condition, Plan of Care For the Purpose of:: To decrease pain, To increase ROM, To increase tolerance to activity/condition/position, To improve gait and locomotor functions Therapeutic Exercise to Include: Strength training, Flexibilty training, Passive ROM, Active ROM For the Purpose of:: To decrease pain, To increase ROM, To improve muscle performance and motor function, To improve gait and locomotor functions Manual Therapy Techniques to Include: Scar massage, Passive ROM, Soft tissue mobilization For the Purpose of:: To decrease pain, To increase ROM Cryotherapy (ice pack, ice massage): Yes - after Thermo therapy (hot pack): Yes - prior For the Purpose of:: To decrease swelling/inflammation, To increase ROM Please do not hesitate to contact me at [phone] by phone or if you have questions or concerns regarding this new plan of care! Sincerely, Deon Joshi, DPT, OCS, CSCS
--- NOTE | 2019-03-02 12:48 | HP.PTREVAL_ITS ---
Miguel Harkins, DO, It has been my pleasure to treat FERNANDO DE LA FUENTE over the last 17 visits for s/p R TKA. Please see the progress note below for an update on the physical therapy plan of care! Subjective: Only painful when he bends it. To doctor on Tuesday. Sleeping OK. Motion feels OK to patient. Pulling it back to 110-115. Can climb steps without much problem. Activites are pretty normal at home. Riding stationary bike at home. Objective/Function: 110 prone knee flexion ROM adn 105 supine(hard time relaxin g). -3 extension to -2 passively. Walks normal . Steps are reciprocal with one rail and R obviously slightly tight at full bend. FUNCTIONALLY DOING MUCH BETTER SINCE MANIP AND ROM15 DEGREES BETTER. STILL TIGHT OVER 100 DEGREES BUT FUNCTIONAL. Plan Plan: F/U 3 WEEKS TO ENSURE PROGRESS UNLESS DR. ALSTON WANTS ANOTHER PLAN UPON F/U TUESDAY. Goals Goal 1:: 0-110 AROM to facilitate steps Goal Time Frame: 4-6 Weeks Goal Progress: Progressing Goal 2:: steps reciprocal without rail safe Goal Time Frame: 4-6 Weeks Goal Progress: needs rail. Goal 3:: Walk community without AD I without gait deviations Goal Time Frame: 4-6 Weeks Goal Progress: Goal Met Goal 4:: I approp HEP to minimize future problems adn maximize L strength to have R knee done eventually. Goal Time Frame: 4-6 Weeks Goal Progress: Goal Met Goal 5:: 0-115 aROM without pain to facilitate steps without pain. Goal Time Frame: 2-4 Weeks Goal Progress: Progressing Goal 6:: MAINTAIN FUNCTION AND IMPROVE AROM TO 115 AND -2 OVER THREE WEEKS WITH HEP Goal Time Frame: 2-4 Weeks Goal Progress: NEW GOAL Anticipated Interventions Patient/Client Instruction: Educate patient on: Condition, Plan of Care For the Purpose of:: To decrease pain, To increase ROM, To increase tolerance to activity/condition/position, To improve gait and locomotor functions Therapeutic Exercise to Include: Strength training, Flexibilty training, Passive ROM, Active ROM For the Purpose of:: To decrease pain, To increase ROM, To improve muscle performance and motor function, To improve gait and locomotor functions Manual Therapy Techniques to Include: Scar massage, Passive ROM, Soft tissue mobilization For the Purpose of:: To decrease pain, To increase ROM Cryotherapy (ice pack, ice massage): Yes - after Thermo therapy (hot pack): Yes - prior For the Purpose of:: To decrease swelling/inflammation, To increase ROM Please do not hesitate to contact me at [phone] by phone or if you have questions or concerns regarding this new plan of care! Sincerely, Deon Joshi, DPT, OCS, CSCS
--- NOTE | 2019-05-07 17:23 | HP.PT.NRP ---
HP - Discharge Summary (1) - Patient Information FERNANDO DE LA FUENTE was seen in my office for initial evaluation on 01/15/19. The following Plan of Care was established for this patient: Initial Frequency: 3x /Week Initial Duration: 4-6 Weeks - Anticipated Interventions Patient/Client Instruction: Educate patient on: Condition, Plan of Care For the Purpose of:: To decrease pain, To increase ROM, To increase tolerance to activity/condition/position, To improve gait and locomotor functions Therapeutic Exercise to Include: Strength training, Flexibilty training, Passive ROM, Active ROM For the Purpose of:: To decrease pain, To increase ROM, To improve muscle performance and motor function, To improve gait and locomotor functions Manual Therapy Techniques to Include: Scar massage, Passive ROM, Soft tissue mobilization For the Purpose of:: To decrease pain, To increase ROM Cryotherapy (ice pack, ice massage): Yes - after Thermo therapy (hot pack): Yes - prior For the Purpose of:: To decrease swelling/inflammation, To increase ROM This patient was last seen in our office 03/02/19. Pertinent comments regarding their Physical therapy will appear below: Pt seen 17 visits of POC adn was doing well. Was to f/u three weeks later for progress and ensure compliance but neglected to reschedule. AT this point, it has been over two months and I will discontinue due to nonattendance. At this point I will be discontinuing this patient from physical therapy. I would be happy to see this patient again in the future if found appropriate by the physician. Thank you! Deon Joshi, DPT, OCS, CSCS
== END 2019-03-02 19:00 | disposition home or self-care (01) ==
LOC: PT 12:00
PROVIDERS: Family Provider Family Medicine; PCP Family Medicine; Referring Provider Orthopaedic Surgery; Visit Provider Orthopaedic Surgery
DX: Z47.1 Aftercare following joint replacement surgery (principal); Z12.5 Encounter for screening for malignant neoplasm of prostate
CPT/HCPCS: 36415; 84153; 97110; 97140; 97162; 97530; G0103

== ENCOUNTER → 2019-05-31 10:37 | Outpatient (CLI) | payer MEDICARE, OTHER, SELFPAY ==
[2019-03-05 13:11] VITALS: BMI 28.8
[2019-05-31 11:36] LABS: PSA,Total- Diagnostic 8.42 ng/mL (0.0-4.0)
== END ==
LOC: LAB.FUTURE 10:39 → LAB 10:42
PROVIDERS: Family Provider Family Medicine; PCP Family Medicine; Referring Provider Urology; Visit Provider Urology
DX: R97.20 Elevated prostate specific antigen [PSA] (principal)
CPT/HCPCS: 36415; 84153

== ENCOUNTER → 2019-06-07 17:08 | Outpatient (CLI) | payer MEDICARE, OTHER, SELFPAY ==
[2019-03-05 13:11] VITALS: BMI 28.8
--- NOTE | 2019-06-07 11:15 | CYSPIN_PTH ---
PATIENT: FERNANDO DE LA FUENTE LOC: [facility] U#:[id number] AGE/SX: 75/M ROOM: RE06/07/[address]: Dr. Alex Cornell MD : 1950 BED: DIS: SPEC #: [id number] RECD: 06/08/19 10:51 STATUS: MARIE REQ #: [id number] SHAILA: 06/07/19 11:[address]: Alex Cornell DEPT: CYTOLOGY RECD BY: Stephon Agarwal ENTERED: 06/08/19 10:52 SP TYPE: CYSPIN FL OTHR DR: Dr. Girma Payne, DO Tissues: Urine Procedures: Pap Stain (control) Special Stain Group II Cytospin Fluid HEADER OPERATION: Not noted PRE-OP DIAGNOSIS: Malignant neoplasm of bladder TISSUE SUBMITTED: Urine for cytology DIAGNOSIS CYTOLOGY Urine for cytology (cytospin): Rare atypical urothelial cells present. SJ:julio 06/11/19 COMMENT Please make reference to previous specimens ([id number]) bladder tumor, TUR with diagnosis of papillary urothelial carcinoma and ([id number]) bladder, biopsy with diagnosis of a fragment of urothelial mucosa with moderate to severe urothelial atypia, suspicious for flat carcinoma in situ and ([id number]) urine for cytology with diagnosis of rare atypical urothelial cells present. CYTOLOGY STUDY Slides are reviewed. CYTOLOGY GROSS Received is 30 ml of light yellow clear fluid labeled with the patient's name and and designated per the requisition as urine. Submitted for cytology preparation. / julio 06/08/19 TC:5 CPT: 50117
[2019-06-07 17:09] LABS: Cytology, Body Fluid / CSF SEE PATHOLOGY REPORT
== END ==
PROVIDERS: Family Provider Family Medicine; PCP Family Medicine; Referring Provider Urology; Visit Provider Urology
DX: C67.2 Malignant neoplasm of lateral wall of bladder (principal)
CPT/HCPCS: 88108; 88313

== ENCOUNTER → 2019-07-03 06:19 | Outpatient (CLI) | payer MEDICARE, OTHER, SELFPAY ==
[2019-03-05 13:11] VITALS: BMI 28.8
--- NOTE | 2019-07-03 | PROSBIL_PTH ---
PATIENT: FERNANDO DE LA FUENTE LOC: [facility] U#:[id number] AGE/SX: 75/M ROOM: RE07/03/[address]: Dr. Alex Cornell MD : 1950 BED: DIS: SPEC #: [id number] RECD: 07/03/19 16:00 STATUS: MARIE DENNY #: [id number] SHAILA: 07/03/19 00:[address]: Alex Cornell DEPT: SURGICAL PATHOLOGY RECD BY: Claudio Bradford ENTERED: 07/04/19 08:38 SP TYPE: PROST BX CELESTINO DR: Dr. Girma Payne DO Tissues: A - PROSTATE RIGHT B - PROSTATE RIGHT C - PROSTATE RIGHT D - PROSTATE LEFT E - PROSTATE LEFT F - PROSTATE LEFT Procedures: PROSTATE BX Special Stain Group I AFB Stain (control) GMS Stain (control) HEADER OPERATION: Prostate biopsy PRE-OP DIAGNOSIS: Elevated PSA TISSUE SUBMITTED: A - Right apex, B - Right mid, C - Right base, D - Left apex, E - Left mid, F - Left base MICROSCOPIC DIAGNOSIS A. Right prostate, apex, core biopsy: Chronic prostatitis with focal acute prostatitis. Non-necrotizing granulomatous inflammation to polarizable material. No evidence of malignancy. B. Right prostate, mid, core biopsy: Chronic prostatitis and non-necrotizing granulomatous inflammation. Negative for acid-fast bacilli and fungal organisms. See comment. C. Right prostate, base, core biopsy: Chronic prostatitis. Granulomatous inflammation with polarizable crystals. D. Left prostate, apex, core biopsy: Benign prostatic tissue. E. Left prostate, mid, core biopsy: Minimal chronic inflammation and focal glandular atrophy. F. Left prostate, base, core biopsy: Necrotizing granulomatous inflammation. Negative for acid-fast bacilli and fungal organisms. See comment. AM:julio 07/05/19 COMMENT B & F. AFB and GMS stains with matched controls were used in the evaluation of this case. Case has been reviewed in consultation with Dr. Mccray who concurs with the above diagnosis. IDC:SJ MICROSCOPIC DESCRIPTION Slides are reviewed. GROSS DESCRIPTION A - Received is one container designated prostate, right apex. The specimen consists of two elongated fragments of light kaur-white soft tissue each measuring 1.2 cm in length and 0.1 cm in diameter. The specimen is totally submitted in one cassette. B - Received is one container designated prostate, right mid. The specimen consists of two elongated fragments of light kaur-white soft tissue each measuring 1 cm in length and 0.1 cm in diameter. The specimen is totally submitted in one cassette. C - Received is one container designated prostate, right base. The specimen consists of two elongated fragments of light kaur-white soft tissue measuring 0.5 and 1.5 cm in length and 0.1 cm in diameter. The specimen is totally submitted in one cassette. D - Received is one container designated prostate, left apex. The specimen consists of two elongated fragments of light kaur-white soft tissue measuring 0.8 and 1 cm in length and 0.1 cm in diameter. The specimen is totally submitted in one cassette. E - Received is one container designated prostate, left mid. The specimen consists of two elongated fragments of light kaur-white soft tissue measuring 1 and 1.5 cm in length and 0.1 cm in diameter. The specimen is totally submitted in one cassette. F - Received is one container designated prostate, left base. The specimen consists of two elongated fragments of light kaur-white soft tissue measuring 1.5 and 1 cm in length and 0.1 cm in diameter. The specimen is totally submitted in one cassette. / SJ:rg 07/04/19 TC:3 CPT: G0146, 12830 x4
== END ==
PROVIDERS: Family Provider Family Medicine; PCP Family Medicine; Referring Provider Urology; Visit Provider Urology
DX: R97.20 Elevated prostate specific antigen [PSA] (principal)
CPT/HCPCS: 88305; 88312; G0416

== ENCOUNTER → 2019-07-12 11:22 | Outpatient (CLI) | payer MEDICARE, OTHER, SELFPAY ==
[2019-07-12 11:00] VITALS: BMI 28.8
[2019-07-12 13:00] LABS: ALB/GLOB Ratio 0.9 RATIO (0.9-2.4); AST(SGOT) 23 U/L (15-37); Alanine Aminotransfer ALT/SGPT 27 U/L (16-61); Albumin, Serum 3.7 g/dL (3.2-5.0); Alkaline Phosphatase 112 U/L (45-117); Anion Gap 4 (5-15); BUN 22 mg/dL (7-18); Calcium,Total 9.2 mg/dL (8.5-10.1); Chloride 106 mmol/L (98-107); Cholesterol 189 mg/dL (200); EST Glomerular Filtration Rate 71 mL/min (>60); Est Glom Filt Rate - Afr Amer 85 mL/min (>60); Globulin 4.3 g/dL (2.2-4.2); Glucose 93 mg/dL (74-106); High Density Lipoprotein 53 mg/dL; Potassium 4.3 mmol/L (3.5-5.1); Sodium Level 139 mmol/L (136-145); Triglycerides 113 mg/dL; Very Low Density Lipoprotein 23 mg/dL (5-40)
== END ==
PROVIDERS: PCP Family Medicine; Referring Provider Family Medicine; Visit Provider Family Medicine
DX: E78.2 Mixed hyperlipidemia (principal); N52.9 Male erectile dysfunction, unspecified
CPT/HCPCS: 36415; 80053; 80061

== ENCOUNTER → 2020-05-23 | Outpatient (CLI) | payer MEDICARE, OTHER, SELFPAY ==
[2020-01-11 10:46] VITALS: BMI 28.8
== END | disposition home or self-care (01) ==
LOC: LABSPEC 13:56
PROVIDERS: PCP Family Medicine; Referring Provider Nurse Practitioner Family; Visit Provider Nurse Practitioner Family
DX: U07.1 COVID-19 (principal)
CPT/HCPCS: 87635; U0003

== ENCOUNTER → 2020-07-10 11:16 | Outpatient (CLI) | payer MEDICARE, OTHER, SELFPAY ==
[2020-07-10 10:38] VITALS: BMI 29.1
[2020-07-10 12:56] LABS: ALB/GLOB Ratio 0.8 RATIO (0.9-2.4); AST(SGOT) 20 U/L (15-37); Alanine Aminotransfer ALT/SGPT 23 U/L (16-61); Albumin, Serum 3.6 g/dL (3.2-5.0); Alkaline Phosphatase 131 U/L (45-117); Anion Gap 4 (5-15); BUN 19 mg/dL (7-18); BUN/Creat Ratio 15.8 RATIO (10-20); Calcium,Total 9.1 mg/dL (8.5-10.1); Chloride 105 mmol/L (98-107); Cholesterol 151 mg/dL (200); EST Glomerular Filtration Rate 64 mL/min (>60); Est Glom Filt Rate - Afr Amer 77 mL/min (>60); Globulin 4.3 g/dL (2.2-4.2); Glucose 87 mg/dL (74-106); High Density Lipoprotein 48 mg/dL; Potassium 4.4 mmol/L (3.5-5.1); Protein, Total 7.9 g/dL (6.4-8.2); Sodium Level 138 mmol/L (136-145); Triglycerides 114 mg/dL; Very Low Density Lipoprotein 23 mg/dL (5-40)
== END ==
PROVIDERS: PCP Family Medicine; Referring Provider Family Medicine; Visit Provider Family Medicine
DX: I10 Essential (primary) hypertension (principal); N52.9 Male erectile dysfunction, unspecified
CPT/HCPCS: 36415; 80053; 80061

== ENCOUNTER → 2020-08-12 | Outpatient (CLI) | payer MEDICARE, OTHER, SELFPAY | END | disposition home or self-care (01) | LOC: LABSPEC 09:53 | PROVIDERS: PCP Family Medicine; Referring Provider Nurse Practitioner Family; Visit Provider Nurse Practitioner Family | DX: T23.7 Corrosion of third degree of wrist and hand (principal) | CPT/HCPCS: 87070; 87205 ==

== ENCOUNTER → 2020-10-22 10:15 | Outpatient (CLI) | payer MEDICARE, OTHER, SELFPAY ==
[2020-10-22 12:39] LABS: Absolute Lymphocyte Count 1.69 X10^3/uL (0.83-4.51); Absolute Neutrophil Count 3.7 X10^3/uL (2.0-7.7); Basophil# 0.03 X10^3/uL; Basophil% 0.5 % (0-1); Eosinophil# 0.07 X10^3/uL; Eosinophils% 1.2 % (0-5); Hematocrit 48.1 % (40-54); Hemoglobin 14.9 g/dL (13.0-16.5); Lymphocyte # 1.69 X10^3/ul (0.83-4.51); Lymphocyte % 28.4 % (19-41); Monocyte% 8.4 % (0-10); NRBC Flagged by Analyzer 0 % (0-5); Neutrophil # 3.65 X10^3/uL (2.7-7.7); Neutrophil % 61.3 % (47-70); Platelet Count 373 K/mm3 (150-450); RBC Distribution Width CV 13.3 % (11.6-14.6); RBC Distribution Width SD 47.4 fl (35.1-43.9); Red Blood Count 4.96 M/mm3 (4.6-6.2)
[2020-10-22 13:04] LABS: ALB/GLOB Ratio 0.8 RATIO (0.9-2.4); AST(SGOT) 19 U/L (15-37); Alanine Aminotransfer ALT/SGPT 29 U/L (16-61); Albumin, Serum 3.7 g/dL (3.2-5.0); Alkaline Phosphatase 118 U/L (45-117); Anion Gap 2 (5-15); BUN 24 mg/dL (7-18); Calcium,Total 9.7 mg/dL (8.5-10.1); Chloride 105 mmol/L (98-107); EST Glomerular Filtration Rate 64 mL/min (>60); Est Glom Filt Rate - Afr Amer 77 mL/min (>60); Globulin 4.4 g/dL (2.2-4.2); Glucose 94 mg/dL (74-106); Potassium 4.4 mmol/L (3.5-5.1); Protein, Total 8.1 g/dL (6.4-8.2); Sodium Level 137 mmol/L (136-145)
== END ==
PROVIDERS: PCP Family Medicine; Referring Provider Physician Assistant; Visit Provider Physician Assistant
DX: I10 Essential (primary) hypertension (principal); R42 Dizziness and giddiness
CPT/HCPCS: 36415; 80053; 85025

== ENCOUNTER 2021-04-01 06:01 | Day surgery (SDC) | payer MEDICARE, OTHER, SELFPAY ==
--- NOTE | 2021-03-26 13:03 | EKG12_ITS ---
Test Reason : PREOP Blood Pressure : / mmHG Vent. Rate : 077 BPM Atrial Rate : 077 BPM P-R Int : 158 ms QRS Dur : 082 ms QT Int : 378 ms P-R-T Axes : 056 016 077 degrees QTc Int : 427 ms Normal sinus rhythm Nonspecific T wave abnormality Abnormal ECG Confirmed by PALOMA MERRITT, KARYN ([id number]), photographic editor LEONORA MADRIGAL ([id number]) on 03/30/2021 10:53:17 AM Referred By: Alex Cornell Confirmed By:JUDIE DOW MD
[2021-04-01 06:40] VITALS: BP 153/76; PULSE 78; RESP 16; TEMP 36.4; O2SAT 95; BMI 32.4
[2021-04-01] MEDS: Lactated Ringers 1,000 ML 100 ML IV ×2 (07:01→09:22)
--- NOTE | 2021-04-01 07:19 | HP.PCM_ITS ---
HPI - General HPI Narrative FERNANDO DE LA FUENTE, is a 71 M who presents for a TURP COUNT INCLUDES THE [facility] Medical History (Updated 03/25/21 @ 09:20 by Zaida Heath) Alcohol use Arthritis Bladder cancer Cancer High cholesterol History of edema Hypertension Injury of back Non-smoker Wears glasses Home Medications ascorbic acid (vitamin C) 1,000 mg tablet 1 tab PO DAILY tab 02/10/18 [History Last Taken Unknown] multivitamin 1 tab PO DAILY 02/10/18 [History Last Taken Unknown] tadalafil 20 mg tablet 20 mg PO DAILY PRN #3 tab 02/10/18 [Rx Last Taken Unknown] L.acidoph, paracasei,B. lactis 1 ea PO DAILY 10/17/18 [History Last Taken Unknown] fluticasone propionate 2 spray NASAL DAILY PRN 10/17/18 [History Last Taken Unknown] tamsulosin 0.4 mg PO DAILY 10/17/18 [History Last Taken 10/27/18] acetaminophen 1,000 mg PO Q8 PRN 02/07/19 [History Last Taken Unknown] cholecalciferol (vitamin D3) 50 mcg (2,000 unit) capsule 50 mcg PO DAILY 07/10/20 [History Last Taken Unknown] tumeric 500 mg PO DAILY 07/10/20 [History Last Taken Unknown] zinc 50 mg tablet 50 mg PO DAILY 07/10/20 [History Last Taken Unknown] amlodipine 10 mg tablet 10 mg PO DAILY #90 tab 02/24/21 [Rx Last Taken 04/01/21] atorvastatin 20 mg tablet 20 mg PO DAILY #90 tab 02/24/21 [Rx Last Taken Unknown] Allergy/AdvReac Type Severity Reaction Status Date / Time ciprofloxacin [From Cipro] Allergy Intermediate muscle Verified 04/01/21 06:38 aches Family History Father Hypertension CVA (cerebral vascular accident) Kidney disease High cholesterol Surgical History (Updated 03/25/21 @ 09:20 by Zaida Heath) History of bladder surgery History of dental surgery History of prostate biopsy History of total right knee replacement (TKR) Hx of colonoscopy Hx of hernia repair Hx of surgical procedure Hx of vasectomy Social History (Updated 08/12/20 @ 09:46 by Giancarlo Suazo MACHINE BRUSHER, MACHINE BRUSHER-C) Smoking Status: Never smoker alcohol intake: never what type of physical activity do you participate in: bicycling Vital Signs Vital Signs Vital Signs: 04/01/21 06:40 04/01/21 06:46 Temperature 97.6 F L Temperature Source Temporal Pulse Rate 78 Respiratory Rate 16 Respiratory Pattern Normal Blood Pressure 153/76 H Blood Pressure Mean 101 Blood Pressure Source Monitor Blood Pressure Position Semi-Fowlers Blood Pressure Location Right Arm Pulse Ox 95 Oxygen Delivery Method Room Air Weight Weight: 75.3 kg Body Mass Index (BMI) 32.4
--- NOTE | 2021-04-01 07:23 | PCM.DC ---
Discharge Instructions Diet Discharge Diet: No restrictions Activity Discharge Activity: May Not Drive (while taking narcotic pain medications.) Dressing / Incision Call your doctor if you observe: Fever of 101 or Higher Catheter: Mejias to leg bag and Mejias to large bag Drain: [place] Additional Dressing/Incision Instructions:: make appt to remove mejias next week. Follow Up Care Please Follow Up With: Alex Cornell MD When: Call [phone] for an appointment Test Results: Test results from this visit will be discussed in further detail at your follow-up appointment, if applicable. Discharge Plan Admission Primary Reason for Your Visit: TURP Attending Provider: Alex Cornell Primary Care Provider: Girma Payne Discharge Orders/Prescriptions Prescriptions: New cephalexin 500 mg capsule 500 mg PO BID Qty: 14 RF: 0 ibuprofen 400 mg tablet 400 mg PO Q6H PRN (Reason: pain) Qty: 20 RF: 0 Continued multivitamin tablet 1 tab PO DAILY RF: 0 ascorbic acid (vitamin C) 1,000 mg tablet 1 tab PO DAILY RF: 0 tadalafil [Cialis] 20 mg tablet 20 mg PO DAILY PRN (Reason: sexual activity) Qty: 3 RF: 6 tumeric 500 mg PO DAILY RF: 0 cholecalciferol (vitamin D3) 50 mcg (2,000 unit) capsule 50 mcg PO DAILY RF: 0 zinc 50 mg tablet 50 mg PO DAILY RF: 0 tamsulosin 0.4 MG capsule 0.4 mg PO DAILY RF: 0 fluticasone propionate 1 SPRAY spray,suspension 2 spray NASAL DAILY PRN (Reason: Allergies) RF: 0 L.acidoph, paracasei,B. lactis 1 EACH capsule 1 ea PO DAILY RF: 0 acetaminophen 500 MG tablet 1,000 mg PO Q8 PRN (Reason: Pain) RF: 0 amlodipine 10 mg tablet 10 mg PO DAILY Qty: 90 RF: 2 atorvastatin 20 mg tablet 20 mg PO DAILY Qty: 90 RF: 0 Referrals / Follow Up: Girma Payne DO [Primary Care Provider] - Alex Cornell MD [STAFF PHYSICIAN] - Disposition Disposition (needs filled in before D/C Order can be placed): Home, Self Care
--- NOTE | 2021-04-01 07:30 | PROS_PTH ---
PATIENT: FERNANDO DE LA FUENTE [place] [facility] [id number] AGE/SX: 71/M ROOM: RE04/01/[address]: Dr. Alex Cornell MD : 1950 BED: DIS: 04/01/2021 SPEC #: [id number] RECD: 04/01/21 08:59 STATUS: MARIE BALDWIN #: [id number] SHAILA: 04/01/21 07:[address]: Alex Cornell DEPT: SURGICAL PATHOLOGY RECD BY: Claudio Bradford ENTERED: 04/01/21 10:03 SP TYPE: TURP OTHR DR: Dr. Girma Payne, DO Tissues: Prostate, NOS Procedures: Surgery Specimen Level IV HEADER OPERATION: Cysto, TUR prostate, Olympus PRE-OP DIAGNOSIS: BPH with lower urinary tract symptoms, elevated PSA, malignant neoplasm of lateral wall of bladder TISSUE SUBMITTED: Prostate chips MICROSCOPIC DIAGNOSIS Prostate tissue, TUR: Benign prostatic hyperplasia, glandular and stromal type. Focal chronic inflammation. CONNIE:julio 04/02/2021 MICROSCOPIC DESCRIPTION Slides are reviewed. GROSS DESCRIPTION Received is one container labeled with the patient's name and designated prostate tissue. The specimen consists of multiple irregular fragments of pink-kaur, rubbery, soft tissue that in aggregate weigh 8.5 gm and measure in aggregate 4 x 4 x 1 cm. A few metallic clips are also noted in the specimen. The entire specimen is submitted in ten cassettes. / CONNIE:julio 04/01/21 TC:5 CPT: 23828
--- NOTE | 2021-04-01 08:38 | PCM.OPRPT ---
Report of Operation Pre-Operative Diagnosis: bph with obstruction Post-Operative Diagnosis: same Surgery/Procedure Performed:: TURP Description of Surgical Findings:: In the preoperative setting I discussed with the patient how the surgery would be done with expect afterwards. We discussed how a prostate resection is done and we discussed the risk of the surgery including, bleeding, infection, retrograde ejaculation, changes with ejaculation or intercourse,. We discussed the possibility that the resection of the prostate may not alleviate his urinary symptoms. We discussed the small risk of developing scar tissue along the urethral channel and strictures. We also discussed the chance of the prostate could grow back and he may need further surgery or treatment in the future for prostate problems. Patient was taken back to the operating room, timeout procedure was performed, he was identified and marked and placed on the operating room table. He underwent general anesthesia. He was placed in dorsolithotomy position. Penis and testicles were prepped and draped in usual sterile fashion. Went into the bladder using the visual obturator with a resectoscope. Once inside the bladder identified the right and left ureteral orifice. I then identified the prostate and the anatomy of the prostate. I marked out the area of the sphincter and the verumontanum was identified. I then proceeded with the prostate resection first resected the median lobe. And then resected the right lobe of the prostate. Then to resect the left lobe of the prostate. I then resected the apical tissue of the prostate. Made sure that there was no injury to the sphincter or the verumontanum was still intact. At the end of the resection all the chips were Ellik out of the bladder. I then identified the left and right ureteral orifice and these were confirmed to be in good position and effluxing and not injured. The resectoscope was removed, a 22 Faroese catheter was placed into the bladder on continuous irrigation. And the urine was fairly light pink color and draining normally. He was taken back to the PACU in good condition. Surgeon: donna Type of Anesthesia: General Drains: 20 fr mejias Admit VTE Documentation VTE Present on Admission: No VTE Mechan Device Prophylaxis: SCD's VTE Pharm Prophylaxis ordered?: No
[2021-04-01 08:50] VITALS: BP 153/76; BP 159/94; PULSE 95; RESP 16; TEMP 36.3; O2SAT 100
[2021-04-01 09:00] VITALS: BP 153/76; BP 157/86; PULSE 87; RESP 16; O2SAT 87
[2021-04-01 09:15] VITALS: BP 153/76; BP 157/86; PULSE 81; RESP 16; O2SAT 93
[2021-04-01 09:30] VITALS: BP 135/88; BP 153/76; PULSE 76; RESP 16; TEMP 36.6; O2SAT 94
[2021-04-01 10:40] VITALS: BP 138/68; BP 153/76; PULSE 80; RESP 16; TEMP 36.4; O2SAT 99
== END 2021-04-01 10:47 | disposition home or self-care (01) ==
LOC: SDC 06:01 → AC 06:02
PROVIDERS: PCP Family Medicine; Referring Provider Urology; Visit Provider Urology
PROC: (CPT 52601; principal; 2021-04-01 07:20)
DX: N40.1 Benign prostatic hyperplasia with lower urinary tract symptoms (principal); N13.8 Other obstructive and reflux uropathy; I10 Essential (primary) hypertension; E78.00 Pure hypercholesterolemia, unspecified; M19.90 Unspecified osteoarthritis, unspecified site; R97.20 Elevated prostate specific antigen [PSA]; Z98.52 Vasectomy status; Z79.899 Other long term (current) drug therapy; Z85.51 Personal history of malignant neoplasm of bladder
CPT/HCPCS: 00914; 52601; 88305; 93005; J7120

== ENCOUNTER 2021-09-14 13:00 | Outpatient (RCR) | payer MEDICARE, OTHER, SELFPAY ==
--- NOTE | 2021-08-05 12:30 | HP.PTEVAL ---
Patient's Visit Information FERNANDO DE LA FUENTE is a 71 year old M referred to Physical Therapy by Dr. Girma Payne DO with a diagnosis of NECK PAIN RIGHT SIDE. Date of Evaluation: 08/05/21 Physical Therapist: David Arboleda PT, Cert MDT, OCS - Visit Plan Frequency: 2x /Week Duration: 4 Weeks Plan: PT INTERVETIONS ICTX 15#-20 # [id number], US ,POSTURAL EX'S , RTC/SCAPULAR STRENGTH - Subjective This 71 y/o male presents to physical therapy with neck pain on right side and shoulder. Patient seen DR lyndsay KEVIN . Patient has h/o cervical pain with radiculopathy which helped and symptoms got better. Patient symptoms started insidious onset with pain and decrease arm strength. Aggravating factors sleeping ,cleaning with arms affects housework tasks .Alleviating factors ice. Patient has no diagnostics. Patient denies paresthesia/tingling. Denies DEVLIN/tinnitus/nausea. Patient has weakness RIGHT UE. Patient condition affects QOL and function. SOCAIL: . VOCATION: retired - Pain Right Shoulder Pain Intensity (Out of 10): 2 Pain Intensity Range: 10 - Objective POSTURE: mild forward posture. NEURO: denies paresthesia/tingling ,C-5-6-7 hyperreflexia ,myotome weakness. PALPTION: tender UT, unremarkable shoulder. AROM: BUE WFL except decreased shoulder flexion/abduction 135 degrees. MMT: Bilateral RTC infraspinatus ,supraspinatus ,3+/5 ,subscapularis 4/5 ,deltoid 3+/5 pain inarms. MUSIC WORKER STRENGTH: left 30# ,right 40#. CERVICAL ROM: flexion min loss, extension mod loss ,lateral flexion mod loss , - Special Tests C/S Radiculapathy - Left Upper limb tension test: Negative C/S Radiculapathy - Right Upper limb tension test: Negative C/S Radiculapathy - Left Spurlings: Negative C/S Radiculapathy - Left Cervical distraction: Negative C/S Radiculapathy - Left Relief test: Negative Sharp Maycol: Negative Vertebral Artery Test: Negative Alar Ligament Test: Negative - Balance/Special Test Scores Oswestry Neck Score: 16 - Goals Goal 1:: Patient to be I with HEP Goal Time Frame: 4-6 Weeks Goal 2:: Patient to demonstrate 50% improvement with decrease pain shoulders to improve function Goal Time Frame: 4-6 Weeks Goal 3:: Patient to improve myotome weakness to BUE to improve function Goal Time Frame: 4-6 Weeks Goal 4:: Patient to improve strength BUE RTC/deltoid to 4-/5 to improve function Goal Time Frame: 4-6 Weeks Goal 5:: Patient to improve neck oswestry score by 5 points to improve function Goal Time Frame: 4-6 Weeks Goal 6:: Patient to improve client services associate strength to by 10 # to improve function Goal Time Frame: 4-6 Weeks - Rehabilitation Potential Physical Therapy Diagnosis: Patient has possible stenosis cervical along with weakness BUE -myotome weakness ,client services associate strength along with RTC, reflexes. hyperreflexia thus benefit from skilled PT. Rehabilitation Potential: Good - Anticipated Interventions Patient/Client Instruction: Educate patient on: Condition, Plan of Care For the Purpose of:: To decrease pain, To increase ROM, To improve muscle performance and motor function, To improve ability to perform ADL's, To increase tolerance to activity/condition/position, To improve ability of physical actions for home/community/work/leisure, To improve health of tissue, To decrease soft tissue restriction, To increase flexibility/ROM Therapeutic Exercise to Include: Strength training, Postural training, Flexibilty training For the Purpose of:: To decrease pain, To increase ROM, To improve muscle performance and motor function, To improve ability to perform ADL's, To increase tolerance to activity/condition/position, To improve ability of physical actions for home/community/work/leisure, To improve health of tissue, To decrease soft tissue restriction, To increase flexibility/ROM TENS: Yes IF ES: Yes Cryotherapy (ice pack, ice massage): Yes Thermo therapy (hot pack): Yes Ultrasound (thermal/non thermal): Yes For the Purpose of:: To decrease pain, To improve nutrient delivery to tissue, To increase oxygenation perfusion, To improve health of tissue, To decrease soft tissue restriction, To increase flexibility/ROM Thank you for the opportunity to evaluate your patient. For Medicare and Medicare HMO plans, please review the plan of care and approve it. It will need to be FAXED BACK to us at [phone] for Medicare purposes. For Medicare only, by signing this I certify the plan of care. Please let me know if there are questions or concerns regarding this plan of care. Physician Signature: Date:
--- NOTE | 2021-08-31 13:29 | HP.PTREVAL ---
Dr. Girma Payne, DO, It has been my pleasure to treat FERNANDO DE LA FUENTE over the last 9 visits for NECK PAIN RIGHT SIDE. Please see the progress note below for an update on the physical therapy plan of care! Subjective: Doing better overall Objective/Function: POSTURE: mild forward posture. NEURO: denies paresthesia /tingling. CERVICAL ROM: flexion min loss ,lateral flexion/rotation mod loss , extension mod loss. MMT: RTC 4-/5 except subscapularis 4/5 ,deltoid 4-/5 Plan Plan: PT INTERVETIONS ICTX 20#- 12# [id number], US ,POSTURAL EX'S , RTC/SCAPULAR STRENGTH Balance/Gait/Functional tests - Balance/Special Test Scores Oswestry Neck Score: 10 Goals Goal 1:: Patient to be I with HEP Goal Time Frame: 4-6 Weeks Goal Progress: Progressing Goal 2:: Patient to demonstrate 80% improvement with decrease pain shoulders to improve function(new goal) Goal Time Frame: 4-6 Weeks Goal 3:: Patient to improve myotome weakness to BUE to improve function Goal Time Frame: 4-6 Weeks Goal Progress: Progressing Goal 4:: Patient to improve strength BUE RTC/deltoid to 4/5 to improve function( new goal) Goal Time Frame: 4-6 Weeks Goal 5:: Patient to improve neck oswestry score by 5 points to improve function Goal Time Frame: 4-6 Weeks Goal 6:: Patient to improve general internal medicine doctor strength to by 10 # to improve function Goal Time Frame: 4-6 Weeks Goal Progress: Progressing Anticipated Interventions Patient/Client Instruction: Educate patient on: Condition, Plan of Care For the Purpose of:: To decrease pain, To increase ROM, To improve muscle performance and motor function, To improve ability to perform ADL's, To increase tolerance to activity/condition/position, To improve ability of physical actions for home/community/work/leisure, To improve health of tissue, To decrease soft tissue restriction, To increase flexibility/ROM Therapeutic Exercise to Include: Strength training, Postural training, Flexibilty training For the Purpose of:: To decrease pain, To increase ROM, To improve muscle performance and motor function, To improve ability to perform ADL's, To increase tolerance to activity/condition/position, To improve ability of physical actions for home/community/work/leisure, To improve health of tissue, To decrease soft tissue restriction, To increase flexibility/ROM TENS: Yes IF ES: Yes Cryotherapy (ice pack, ice massage): Yes Thermo therapy (hot pack): Yes Ultrasound (thermal/non thermal): Yes For the Purpose of:: To decrease pain, To improve nutrient delivery to tissue, To increase oxygenation perfusion, To improve health of tissue, To decrease soft tissue restriction, To increase flexibility/ROM Please do not hesitate to contact me at [phone] by phone or if you have questions or concerns regarding this new plan of care! Sincerely, David Arboleda, PT, Cert MDT, OCS
--- NOTE | 2022-01-22 11:24 | HP.PTDCSUM ---
It has been my pleasure to treat FERNANDO DE LA FUENTE referred by Dr. Girma Payne DO, with the diagnosis of NECK PAIN RIGHT SIDE for a total of 13 visit(s). Discharge Date: Please see the following information for a summary of their discharge status. Subjective: 5 am pain was worse. During day ,better. ex's help Right Shoulder Pain Intensity (Out of 10): 1 % Improvement: 85 Objective/Function: POSTURE:WFL. NEURO: INTACT. CERVICAL ROM: MIN LOSS EXTENSION/LF/ROTATION,F;LEXION WFL. MMT: RTC/DEDLETOID 4-/5 Goal 1:: Patient to be I with HEP Goal Progress: Goal Met Goal 2:: Patient to demonstrate 80% improvement with decrease pain shoulders to improve function(new goal) Goal Progress: Goal Met Goal 3:: Patient to improve myotome weakness to BUE to improve function Goal Progress: Progressing Goal 4:: Patient to improve strength BUE RTC/deltoid to 4/5 to improve function( new goal) Goal Progress: Progressing Goal 5:: Patient to improve neck oswestry score by 5 points to improve function Goal Progress: Goal Met Goal 6:: Patient to improve market development executive strength to by 10 # to improve function Goal Progress: Progressing Plan: rtd If there are questions or concerns regarding this patient's physical therapy, please feel free to call me at [phone]. Thank you for the referral of this patient. Sincerely, David Arboleda, PT, Cert MDT, OCS Balance/Gait/Functional tests - Balance/Special Test Scores Oswestry Neck Score: 5
== END 2021-09-14 19:00 | disposition home or self-care (01) ==
LOC: PT 13:00
PROVIDERS: PCP Family Medicine; Referring Provider Family Medicine; Visit Provider Family Medicine
DX: M54.2 Cervicalgia (principal)
CPT/HCPCS: 97012; 97014; 97110; 97162; G0283

== ENCOUNTER → 2021-10-08 | Outpatient (CLI) | payer MEDICARE, OTHER, SELFPAY ==
--- NOTE | 2021-10-08 10:57 | MRI_ITS ---
STUDY: MRI CERVICAL SPINE WITHOUT CONTRAST REASON FOR EXAM: Male, 71 years old. neck pain, cervical radiculopathy, shoulder pain TECHNIQUE: Standardized fat and water weighted pulse sequences were obtained in the sagittal and axial planes. COMPARISON: None FINDINGS: Normal foramen magnum and brainstem-cervical cord junction. Unremarkable craniovertebral junction. Unremarkable anterior atlantoaxial articulation. Unremarkable odontoid process. Unremarkable cervical lordosis. The cervical vertebral bodies demonstrate no evidence of compression deformity, multilevel degenerative endplate changes are seen. Unremarkable signal intensity visualized within the marrow of the cervical vertebral bodies, no evidence of T2 punctation suggest edema, fracture or infiltrative process. Disc desiccation visualized throughout the cervical spine, slightly decreased intervertebral disc height visualized most prominent at C5-C6 and C4-C5. C2-3: Degenerative disc osteophyte complex with a focal central protrusion seen, bilateral uncovertebral disease visualized, mild effacement of the ventral CSF spaces is seen but no significant narrowing of the spinal canal, no significant narrowing of the right neural foramina is seen, moderate narrowing of the left neuroforamina is visualized at this level. C3-4: Degenerative disc osteophyte complex and bilateral uncovertebral disease visualized with mild narrowing of the spinal canal and bilateral neuroforamina seen at this level. C4-5: Degenerative disc of cirrhotic complex and bilateral uncovertebral disease visualized with effacement of the ventral CSF spaces and mild distortion of the ventral contour of the cord seen, mild to moderate narrowing of the spinal canal, severe narrowing of the right neural foramina and moderate narrowing of the left neuroforamina is seen at this level. C5-6: Degenerative disc of cirrhotic complex and bilateral uncovertebral disease visualized with effacement of the ventral CSF spaces and mild distortion of the ventral contour of the cord seen, mild to moderate narrowing of the spinal canal, severe narrowing of the right neural foramina and moderate narrowing of the left neuroforamina is seen at this level. C6-7: Degenerative disc osteophyte complex and bilateral uncovertebral disease visualized, no significant narrowing of the spinal canal is seen, mild narrowing of the right neural foramina and mild to moderate narrowing of the left neuroforamina seen at this level. C7-T1: Degenerative changes, no significant narrowing of the spinal canal or neural foramina visualized at this level. Unremarkable signal intensity visualized within the cervical cord. A prominent leftward sleeves is visualized surrounding the exiting nerve root at the left T1-T2 neural foramina. The visualized neck soft tissues are unremarkable. MRI/Spine Cervical (Routine) IMPRESSION: Normal unenhanced MR examination of the cervical spine. Degenerative intervertebral disc disease visualized most prominent at C4-C5 and C5-C6 causing narrowing of the neuroforamina more prominent on the right. Electronically Signed: Mirza Pierson MD at 12:43 EDT ,
== END | disposition home or self-care (01) ==
LOC: MRI 10:57
PROVIDERS: PCP Family Medicine; Referring Provider Nurse Practitioner Family; Visit Provider Nurse Practitioner Family
DX: M54.12 Radiculopathy, cervical region (principal)
CPT/HCPCS: 72141

== ENCOUNTER → 2022-09-24 | Outpatient (CLI) | payer MEDICARE, OTHER, SELFPAY ==
[2022-09-24 12:55] LABS: Absolute Lymphocyte Count 1.88 X10^3/uL (0.83-4.51); Absolute Neutrophil Count 3.6 X10^3/uL (2.0-7.7); Basophil# 0.03 X10^3/uL; Basophil% 0.5 % (0-1); Eosinophils% 1.6 % (0-5); Hematocrit 45.7 % (40-54); Hemoglobin 14.6 g/dL (13.0-16.5); Lymphocyte # 1.88 X10^3/ul (0.83-4.51); Lymphocyte % 30.2 % (19-41); Mean Corp Hgb Conc 31.9 g/dL (32-36); Mean Platelet Vol. 10.5 fl (6.2-12.0); Monocyte# 0.61 X10^3/uL; Monocyte% 9.8 % (0-10); NRBC Flagged by Analyzer 0 % (0-5); Neutrophil % 57.7 % (47-70); Platelet Count 408 K/mm3 (150-450); RBC Distribution Width CV 13.2 % (11.6-14.6); RBC Distribution Width SD 47.5 fl (35.1-43.9); Red Blood Count 4.71 M/mm3 (4.6-6.2); White Blood Count 6.2 K/mm3 (4.4-11.0)
[2022-09-24 13:25] LABS: Anion Gap 6 (5-15); BUN 25 mg/dL (7-18); BUN/Creat Ratio 22.9 RATIO (10-20); Calcium,Total 9.6 mg/dL (8.5-10.1); Chloride 102 mmol/L (98-107); Cholesterol 185 mg/dL (200); Creatinine, Serum 1.09 mg/dL (0.70-1.30); EST Glomerular Filtration Rate 71 mL/min (>60); Est Glom Filt Rate - Afr Amer 85 mL/min (>60); Glucose 108 mg/dL (74-106); High Density Lipoprotein 46 mg/dL; PSA,Total - Annual Screen 7.51 ng/mL (0.00-4.00); Potassium 4.3 mmol/L (3.5-5.1); Sodium Level 137 mmol/L (136-145); Thyroid Stim Hormone (TSH) 1.88 uIU/mL (0.358-3.74); Triglycerides 180 mg/dL; Very Low Density Lipoprotein 36 mg/dL (5-40)
== END | disposition home or self-care (01) ==
LOC: BIMLAB 11:15
PROVIDERS: PCP Family Medicine; Referring Provider Nurse Practitioner Family; Visit Provider Nurse Practitioner Family
DX: Z00.00 Encounter for general adult medical examination without abnormal findings (principal); Z12.5 Encounter for screening for malignant neoplasm of prostate; I10 Essential (primary) hypertension; E78.5 Hyperlipidemia, unspecified; N40.0 Benign prostatic hyperplasia without lower urinary tract symptoms; G47.10 Hypersomnia, unspecified
CPT/HCPCS: 36415; 80048; 80061; 84153; 84443; 85025; G0103

== ENCOUNTER → 2022-10-28 | Outpatient (CLI) | payer MEDICARE, OTHER, SELFPAY | END | disposition home or self-care (01) | LOC: SL 09:23 | PROVIDERS: PCP Family Medicine; Referring Provider Nurse Practitioner Family; Visit Provider Nurse Practitioner Family | DX: G47.10 Hypersomnia, unspecified (principal) | CPT/HCPCS: 95806 ==

== ENCOUNTER 2022-11-03 15:47 | Observation (INO) | payer MEDICARE, OTHER, SELFPAY ==
--- NOTE | 2022-10-28 08:23 | EKG12_ITS ---
Test Reason : PRE OP Blood Pressure : / mmHG Vent. Rate : 067 BPM Atrial Rate : 067 BPM P-R Int : 172 ms QRS Dur : 084 ms QT Int : 400 ms P-R-T Axes : 052 -05 054 degrees QTc Int : 422 ms Normal sinus rhythm Voltage criteria for left ventricular hypertrophy Abnormal ECG Confirmed by GALEN MERRITT, BRITTNI ([id number]), general expeditor LEONORA MADRIGAL ([id number]) on 10/29/2022 8:15:11 AM Referred By: DEISY Confirmed By:BRITTNI AARON MD
[2022-11-03] VITALS (10 sets, daily range): BP systolic 123–159; BP diastolic 57–98; PULSE 75–96; RESP 16–18; TEMP 36.3–36.9; O2SAT 93–100; BMI 29.8
--- NOTE | 2022-11-03 | PROS_PTH ---
PATIENT: FERNANDO DE LA FUENTE LOC: [facility] U#:[id number] AGE/SX: 72/M ROOM: MI319 RE11/03/[address]: Dr. Alex Cornell MD : 1950 BED: 1 DIS: 11/04/2022 SPEC #: [id number] RECD: 11/03/22 15:58 STATUS: MARIE BALDWIN #: [id number] SHAILA: 11/03/22 00:[address]: Alex Cornell DEPT: SURGICAL PATHOLOGY RECD BY: Cornelio Reyna ENTERED: 11/04/22 11:56 SP TYPE: TURP OTHR DR: Dr. Girma Payne, DO Tissues: Prostate, NOS Procedures: Surgery Specimen Level IV HEADER OPERATION: Cysto, TUR prostate, Olympus PRE-OP DIAGNOSIS: Prostate regrowth TISSUE SUBMITTED: Prostate chips MICROSCOPIC DIAGNOSIS Prostate chips, transurethral resection: Benign prostatic hyperplasia, glandular and stromal type. Focal chronic inflammation. SJ:julio 11/05/2022 MICROSCOPIC DESCRIPTION Slides are reviewed. GROSS DESCRIPTION Received is one container labeled with the patient's name and designated prostate chips. The specimen consists of multiple irregular fragments of pink-kaur, rubbery, soft tissue that in aggregate weigh 7.4 gm and measure in aggregate 5.0 x 3.5 x 1.0 cm. The entire specimen is submitted in eight cassettes. / CONNIE:julio 11/04/2022 TC:5 CPT: 16993
[2022-11-03] MEDS: Lactated Ringers 1,000 ML 15 ML IV ×2 (11:42→13:55)
--- NOTE | 2022-11-03 11:54 | HP.PCM_ITS ---
[facility] - General General Date of Service: 11/03/22 Chief Complaint: Prostate regrowth HPI Narrative FERNANDO DE LA FUENTE, is a 72 M who presents for transurethral resection of the prostate he had a TURP in the past and then recent cystoscopy demonstrated significant regrowth and blockage of the channel so organ to do a repeat transurethral resection of the prostate for regrowth of the channel. [facility] Medical History (Updated 10/27/22 @ 11:35 by Renan Lam) Alcohol use Arthritis Bladder cancer Cancer High cholesterol History of edema Hypertension Injury of back Non-smoker Preventative health care Sleep apnea Wears glasses Home Medications ascorbic acid (vitamin C) 1,000 mg tablet 1 tab PO DAILY supplement 02/10/18 [History Last Taken Unknown] multivitamin 1 tab PO DAILY supplement 02/10/18 [History Last Taken Unknown] L.acidoph, paracasei,B. lactis 10 billion cell capsule 1 ea PO DAILY supplement 10/17/18 [History Last Taken Unknown] cholecalciferol (vitamin D3) 50 mcg (2,000 unit) capsule 50 mcg PO DAILY 07/10/20 [History Last Taken Unknown] tumeric 500 mg PO DAILY 07/10/20 [History Last Taken Unknown] atorvastatin 20 mg tablet 20 mg PO DAILY #90 tabs 08/26/22 [Rx Last Taken Unknown] hydrochlorothiazide 25 mg tablet 25 mg PO QAM #90 tabs 09/10/22 [Rx Last Taken Unknown] amlodipine 10 mg tablet 10 mg PO DAILY #90 tabs 09/24/22 [Rx Last Taken 11/03/22 08:00] cephalexin 500 mg capsule 500 mg PO BID #10 caps 11/03/22 [Rx Last Taken Unknown] Allergy/AdvReac Type Severity Reaction Status Date / Time ciprofloxacin [From Cipro] Allergy Intermediate muscle Verified 11/03/22 11:39 aches Family History Father Hypertension CVA (cerebral vascular accident) Kidney disease High cholesterol Surgical History History of bladder surgery History of dental surgery History of prostate biopsy History of prostate surgery History of total right knee replacement (TKR) Hx of colonoscopy Hx of hernia repair Hx of surgical procedure Hx of vasectomy Social History Smoking Status: Never smoker alcohol intake: never what type of physical activity do you participate in: bicycling Vital Signs Vital Signs Vital Signs: 11/03/22 11:39 11/03/22 11:39 Temperature 97.7 F L Temperature Source Temporal Pulse Rate 90 Respiratory Rate 16 Respiratory Pattern Normal Blood Pressure 156/86 H Blood Pressure Mean 109 Blood Pressure Source Monitor Blood Pressure Position Semi-Fowlers Blood Pressure Location Left Arm Pulse Ox 94 Oxygen Delivery Method Room Air Weight Weight: 74 kg Body Mass Index (BMI) 29.8
--- NOTE | 2022-11-03 11:54 | DCINST_ITS ---
Discharge Instructions Diet Discharge Diet: No restrictions Follow Up Care Please Follow Up With: Alex Cornell MD Test Results: Test results from this visit will be discussed in further detail at your follow- up appointment, if applicable. Discharge Plan Admission Primary Reason for Your Visit: trish Attending Provider: Alex Cornell Primary Care Provider: Girma Payne Discharge Orders/Prescriptions Prescriptions: New cephalexin 500 mg capsule 500 mg PO BID Qty: 10 0RF Continued multivitamin tablet 1 tab PO DAILY ascorbic acid (vitamin C) 1,000 mg tablet 1 tab PO DAILY tumeric 500 mg PO DAILY cholecalciferol (vitamin D3) 50 mcg (2,000 unit) capsule 50 mcg PO DAILY amlodipine 10 mg tablet 10 mg PO DAILY Qty: 90 2RF L.acidoph, paracasei,B. lactis 1 EACH capsule 1 ea PO DAILY atorvastatin 20 mg tablet 20 mg PO DAILY Qty: 90 1RF hydrochlorothiazide 25 mg tablet 25 mg PO QAM Qty: 90 1RF Referrals / Follow Up: Girma Payne, [Primary Care Provider] - Alex Cornell MD [Med Staff - Active Staff] - Disposition Disposition (needs filled in before D/C Order can be placed): Home, Self Care
[2022-11-03] MEDS: Cefazolin 2 GM in 0.9% Normal Saline 100 ML IV (12:28)
--- NOTE | 2022-11-03 13:26 | PCM.OPRPT ---
Report of Operation Date of Procedure: 11/03/22 Pre-Operative Diagnosis: BPH with obstruction and regrowth obstruction Post-Operative Diagnosis: The same Surgery/Procedure Performed:: Transurethral resection of the prostate for regrowth obstruction of the prostate Description of Surgical Findings:: Patient was taken back to the operating room at a smooth induction of general anesthesia he was placed in dorsal lithotomy position I went into the urethra with a 24 Kisw[place]ili noncontinuous flow Olympus resectoscope and immediately found that he had significant scar tissue and regrowth and scarring of the 2 lateral lobes of the prostate back in the midline was causing a blockage to really deflect the scope up over this to get into the bladder I then switched over the to the resectoscope and used a medium size loop and started resecting back into I resected through the scar tissue and the repeat regrowth tissue until got to the verumontanum I then proceeded with the resection and then resected the right lobe of the prostate the floor the prostate and then the left of the prostate and then really did not resect much of the anterior tissue but there is very minimal tissue that a flow test had a wide open flow sphincter was intact and then cauterized obtain hemostasis we then placed a 22 Kiswahili catheter in the bladder and continuous irrigation the patient and his anesthetic is being reversed and taken back to PACU in good condition. Surgeon: Alex Cornell Type of Anesthesia: General Drains: [address] Estimated Blood Loss (mL): 10 Admit VTE Documentation VTE Present on Admission: No VTE Mechan Device Prophylaxis: SCD's VTE Pharm Prophylaxis ordered?: No
--- NOTE | 2022-11-03 15:55 | SUR.PHASEI ---
TORBV, admit patient to observation for turp. standard admit. ms3.
--- NOTE | 2022-11-03 16:12 | NURSING ---
pt came up w/ LR bag running @ 125/hr from PACU-will continue that bag until complete
[2022-11-03] MEDS: Lactated Ringers 1,000 ML 125 ML IV (17:50)
[2022-11-03] MEDS: Cefazolin 1 GM/50 ML BAG IV (20:08)
[2022-11-03] MEDS: Docusate Sodium 100 MG Capsule 200 MG PO (22:27)
[2022-11-03] MEDS: Atorvastatin Calcium 20 MG Tablet PO (22:28)
[2022-11-04] MEDS: Cefazolin 1 GM/50 ML BAG IV (04:28)
[2022-11-04] MEDS: Lactated Ringers 1,000 ML 125 ML IV (04:29)
[2022-11-04 06:00] VITALS: BP 126/78; PULSE 77; RESP 16; TEMP 36.6; O2SAT 97
[2022-11-04 08:13] VITALS: O2SAT 95
[2022-11-04] MEDS: Docusate Sodium 100 MG Capsule 200 MG PO (08:51)
[2022-11-04] MEDS: amLODIPine 10 MG Tablet PO (08:51)
[2022-11-04] MEDS: Multivitamins,Therapeutic Tablet 1 TABLET PO (08:51)
[2022-11-04] MEDS: hydroCHLOROthiazide 25 MG Tablet PO (08:51)
[2022-11-04 08:55] VITALS: BP 144/78; PULSE 78; RESP 16; TEMP 36.8; O2SAT 98
== END 2022-11-04 11:15 | disposition home or self-care (01) ==
LOC: SDC 16:00 → MS3 16:00
PROVIDERS: Admitting Provider Urology; PCP Family Medicine; Referring Provider Urology; Visit Provider Urology
PROC: (CPT 52630; principal; 2022-11-03 13:00)
DX: N40.1 Benign prostatic hyperplasia with lower urinary tract symptoms (principal); I10 Essential (primary) hypertension; E78.00 Pure hypercholesterolemia, unspecified; N13.8 Other obstructive and reflux uropathy; M54.16 Radiculopathy, lumbar region; N52.9 Male erectile dysfunction, unspecified; G47.30 Sleep apnea, unspecified; Z79.899 Other long term (current) drug therapy; R94.31 Abnormal electrocardiogram [ECG] [EKG]
CPT/HCPCS: 52630; 00914; 88305; 93005; 96361; 96365; 96366; 99221; J7120; G0378; J2405

== ENCOUNTER → 2022-12-06 | Outpatient (CLI) | payer MEDICARE, OTHER, SELFPAY | END | disposition home or self-care (01) | LOC: SL 20:30 | PROVIDERS: PCP Family Medicine; Referring Provider Nurse Practitioner Family; Visit Provider Nurse Practitioner Family | DX: G47.33 Obstructive sleep apnea (adult) (pediatric) (principal) | CPT/HCPCS: 95811 ==

== ENCOUNTER → 2023-06-02 | Outpatient (CLI) | payer MEDICARE, OTHER, SELFPAY | END | disposition home or self-care (01) | LOC: LAB 11:27 | PROVIDERS: PCP Family Medicine; Referring Provider Urology; Visit Provider Urology | DX: R97.20 Elevated prostate specific antigen [PSA] (principal) | CPT/HCPCS: 36415; 84153 ==

== ENCOUNTER → 2023-10-26 | Outpatient (CLI) | payer MEDICARE, OTHER, SELFPAY ==
--- NOTE | 2023-10-26 14:37 | NEURO_ITS ---
NCS and/or EMG Patient Report Ordering Doctor: Girma Payne DATE OF SERVICE: 10/26/23 Roger presents for electrodiagnostic testing of the right upper limb. He reports numbness and tingling in the first 3 digits of the right hand. Electrodiagnostic findings: Right median motor nerve demonstrates prolonged la tency with reduced amplitude and normal conduction velocity. Right ulnar motor nerve demonstrates normal distal latency, amplitude and conduction velocity across the elbow. Prolonged right median F?wave. Prolonged right median sensory latency at the wrist. Normal ulnar and radial sensory responses. Needle EMG was performed the right upper limb. All muscles tested showed no evidence of denervation with normal motor unit action potentials. Electrodiagnostic impression: This is an abnormal study in the right upper limb 1. Electrodiagnostic findings are suggestive of right-sided median mon oneuropathy. This consistent with a severe right carpal tunnel syndrome. 2. There is no electrodiagnostic evidence for cervical radiculopathy. Multi Select Codes Neurology Neurology Interp Codes: 56737-23 Musc test done w/n test comp (interp) and 64951-21 Nrv cndj tst 5-6 studies (interp)
== END | disposition home or self-care (01) ==
LOC: PSN 10:33
PROVIDERS: PCP Family Medicine; Referring Provider Family Medicine; Visit Provider Family Medicine
DX: G56.01 Carpal tunnel syndrome, right upper limb (principal)
CPT/HCPCS: 95886; 95909

== ENCOUNTER → 2023-11-17 | Outpatient (CLI) | payer MEDICARE, OTHER, SELFPAY ==
[2023-11-17 10:40] LABS: PSA,Total- Diagnostic 5.88 ng/mL (0.0-4.0)
== END | disposition home or self-care (01) ==
LOC: LAB 09:08
PROVIDERS: PCP Family Medicine; Referring Provider Urology; Visit Provider Urology
DX: R97.20 Elevated prostate specific antigen [PSA] (principal)
CPT/HCPCS: 36415; 84153

== ENCOUNTER 2024-01-24 14:35 | Day surgery (SDC) | payer MEDICARE, OTHER, SELFPAY ==
[2024-01-24] VITALS (8 sets, daily range): BP systolic 110–138; BP diastolic 59–83; PULSE 58–80; RESP 14–20; TEMP 35.7–36.6; O2SAT 92–96; BMI 31.1
[2024-01-24] MEDS: Lactated Ringers 1,000 ML 15 ML IV (14:52)
--- NOTE | 2024-01-24 15:03 | PRE.ANES_ITS ---
ASA Classification* ASA Classification ASA Classification: 3 Assessment & Plan Anesthesia* Anesthesia Assessment Anesthesia Assessment: Discussed sedation and/or anesthesia options, risks, benefits, and alternatives with patient/parents/legal guardian/POA. Questions invited. The patient/parents/legal guardian/POA seems to understand and agrees to proceed with anesthesia plan. Reviewed the physical assessment, medical history, allergy history and patient home medications list prior to surgery/procedure/anesthetic and documented any changes. Performed airway and anesthesia risk assessments. Anesthesia Type Anesthesia Type: MAC History Source History Obtained from:: Patient and Chart Anesthesia Focused Assessment* Temperature: 97 F Pulse Rate: 80 Blood Pressure: 138/83 Respiratory Rate: 16 Pulse Ox: 96 Oxygen Delivery Method: Room Air Airway Assessment Mouth opens: >3 cm Mallampati Score: IV Teeth Condition: Missing (Patient has 4 missing teeth) Neck Range of motion (ROM): Limited ROM Focused Labs Anesthesia Preop lab: CBC WBC 6.2 K/mm3 (4.4-11.0) 09/24/22 11:15 RBC 4.71 M/mm3 (4.6-6.2) 09/24/22 11:15 Hgb 14.6 g/dL (13.0-16.5) 09/24/22 11:15 Hct 45.7 % (40-54) 09/24/22 11:15 Plt Count 408 K/mm3 (150-450) 09/24/22 11:15 CHEMISTRY Potassium 4.3 mmol/L (3.5-5.1) 09/24/22 11:15 Sodium 137 mmol/L (136-145) 09/24/22 11:15 BUN 25 mg/dL (7-18) H 09/24/22 11:15 Creatinine 1.09 mg/dL (0.70-1.30) 09/24/22 11:15 Glucose 108 mg/dL (74-106) H 09/24/22 11:15 TSH 1.88 uIU/mL (0.358-3.74) 09/24/22 11:15 COAG Pre-Assessment Diagnosis/Proposed Procedure Planned Operative Procedure(s): (R) Right Open Carpal Tunnel Release Anesthesia History Anesthesia History - casino floor walker: Anesthesia History - casino floor walker Hx Hospitalization No 01/17/24 11:00 Any Problems With Anesthesia No 01/17/24 11:00 Cholinesterase deficiency No 01/17/24 11:00 You/Your Family Experience No 01/17/24 11:00 fever (hyperthermia) with Relationship Recent Exposure to Contagious No 01/24/24 14:48 Disease Does patient have nerve No 01/17/24 11:00 stimulator Patient instructed to have device shut off --Does patient have Pacemaker No 01/24/24 14:48 or ICD? When Was Last Pacemaker Check QUESTION #4 FULL TEXT: You/Your Family Experience fever (hyperthermia) with Anesthesia Last Oral Intake Last Oral intake: Last Oral Intake NPO since 22:30 01/24/24 14:48 Meds taken in AM with sips of Yes 01/24/24 14:48 water? Meds patient instructed to AMLODIPINE 01/24/24 14:48 take am of surgery PONV PONV - casino floor walker: PONV - casino floor walker Female No 01/17/24 11:00 HX of Motion Sickness No 01/17/24 11:00 HX of N/V After Surgery Yes 01/17/24 11:00 Non-Smoker Yes 01/17/24 11:00 Duration of Surgery greater Yes 01/17/24 11:00 than 60 minutes Number of Risk Factors 3 01/17/24 11:00 PONV Score Moderate Risk 01/17/24 11:00 Height & Weight Height & Weight: Anesthesia: Height & Weight Height 5 ft 2 in 01/24/24 14:48 Weight: 77.2 kg 01/24/24 14:48 Body Mass Index (BMI) 31.1 01/24/24 14:48 Respiratory Assessment Respiratory Assessment - casino floor walker: Respiratory Tract Infection Hx - casino floor walker Hx Respiratory Tract Infection No 01/17/24 11:00 STOP Sleep Apnea STOP Sleep Apnea - casino floor walker: STOP Sleep Apnea - casino floor walker Hx Hypertension Yes 01/17/24 11:00 Hx Sleep Apnea Yes 01/17/24 11:00 CPAP Yes 01/17/24 11:00 BIPAP No 01/17/24 11:00 Do you snore loudly (louder than talking or can be heard Do you often feel tired/ fatigued/ sleepy during daytime? Has anyone observed you stop breathing during sleep? STOP Results Positive 01/17/24 11:00 QUESTION #5 FULL TEXT : Do you snore loudly (louder than talking or can be heard through closed doors)? 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 Specify any problems Hx of Preganancy in last 3 N/A 01/17/24 11:00 Months Nurse Filling Out Transfusion NBUCHER 01/17/24 11:00 & Questions: Date: 01/17/24 01/17/24 11:00 Time: 11:02 01/17/24 11:00 Patient unable to answer at this time (ie. confused, unrespo /Reproduction History /Reproductive History - casino floor walker: /Reproductive Hx- casino floor walker Hx Now Gestational Age (in weeks): EDC: Hx Hx Para Hx Section SAB No 01/17/24 11:00 Active Medications Active Medications: Current Medications Generic Name Dose Route Start Last Admin Trade Name Freq PRN Reason Stop Dose Admin Lactated Ringer's 1,000 mls @ 15 mls/hr 01/24/24 14:45 01/24/24 14:52 IV 15 mls/hr .Q48H SHELL Administration PFSH Medical History CPAP (continuous positive airway pressure) dependence REBECCA (obstructive sleep apnea) Sleep apnea Preventative health care Wears glasses Cancer Alcohol use Injury of back Non-smoker History of edema Bladder cancer High cholesterol Hypertension Arthritis Home Medications ?Medication ?Instructions ?Recorded ?Last Taken ?Type ascorbic acid (vitamin C) 1,000 mg 1 tab PO DAILY supplement 02/10/18 01/23/24 History tablet multivitamin 1 tab PO DAILY supplement 02/10/18 01/23/24 History cholecalciferol (vitamin D3) 50 50 mcg PO DAILY 07/10/20 01/23/24 History mcg (2,000 unit) capsule tumeric 500 mg PO DAILY 07/10/20 01/16/24 History amlodipine 10 mg tablet 10 mg PO DAILY #90 tabs 08/22/23 01/24/24 Rx atorvastatin 20 mg tablet See Rx Instructions .Route 08/22/23 01/23/24 Rx .COMPLEX #90 tabs hydrochlorothiazide 25 mg tablet 25 mg PO QAM #90 tabs 08/22/23 01/23/24 Rx Allergy/AdvReac Type Severity Reaction Status Date / Time ciprofloxacin (From Cipro) Allergy Intermediate muscle Verified 01/24/24 14:46 aches Family History Father Hypertension CVA (cerebral vascular accident) Kidney disease High cholesterol Surgical History History of transurethral resection of prostate History of prostate surgery Hx of colonoscopy History of dental surgery Hx of vasectomy Hx of hernia repair Hx of surgical procedure History of prostate biopsy History of total right knee replacement (TKR) History of bladder surgery Social History Smoking Status: Never smoker alcohol intake: never what type of physical activity do you participate in: bicycling Review of Systems (Anesthesia) ROS Narrative System reviewed and no additional complaints, except as documented.
--- NOTE | 2024-01-24 15:47 | HP.PCM_ITS ---
History and Physical Date of Admission: 01/24/24 [facility] [address] [place] [address] OFFICE VISIT Date of Service: 12/19/23 MR#: [id number] Acct: [id number] Name: FENRANDO DE LA FUENTE Rep #: [id number] : 1950 Provider: Dr. Miguel Harkins DO Age/Sex: 73/M Location: [facility] [place] Status: Signed Intake Vital Signs 10/03/2413:49 12/18/2408:01 Height 5 ft 2 in 5 ft 2 in Weight: 170 lb 174 lb BMI 31.1 31.8 BP 122/80 H Blood Pressure Location Lt brachial Position Sitting Respiration 14 Pulse 78 Pulse Source Monitor Temp 98.4 F Temp Source Temporal Pulse Oximetry (%) 96 Oxygen Delivery Method room air Intake Visit Reasons: RIGHT HAND Chief Complaint: numb right thumb Accompanied by: Is patient in pain?: No Allergies ciprofloxacin (From Cipro) Allergy (Intermediate, Verified 12/19/23 09:03) muscle aches Medications ?Medication ?Instructions ?Recorded ?Confirmed ?Type ascorbic acid (vitamin C) 1,000 mg 1 tab PO DAILY supplement 02/10/18 12/19/23 History tablet multivitamin 1 tab PO DAILY supplement 02/10/18 12/19/23 History cholecalciferol (vitamin D3) 50 50 mcg PO DAILY 07/10/20 12/19/23 History mcg (2,000 unit) capsule tumeric 500 mg PO DAILY 07/10/20 12/19/23 History amlodipine 10 mg tablet 10 mg PO DAILY #90 tabs 08/22/23 12/19/23 Rx atorvastatin 20 mg tablet See Rx Instructions .Route 08/22/23 12/19/23 Rx .COMPLEX #90 tabs hydrochlorothiazide 25 mg tablet 25 mg PO QAM #90 tabs 08/22/23 12/19/23 Rx Have you fallen in the past year?: Yes PFSH Medical History REBECCA (obstructive sleep apnea) Sleep apnea Preventative health care Wears glasses Cancer Alcohol use Injury of back Non-smoker History of edema Bladder cancer High cholesterol Hypertension Arthritis Surgical History History of prostate surgery Hx of colonoscopy History of dental surgery Hx of vasectomy Hx of hernia repair Hx of surgical procedure History of prostate biopsy History of total right knee replacement (TKR) History of bladder surgery Family History Father Hypertension CVA (cerebral vascular accident) Kidney disease High cholesterol Social History Smoking Status: Never smoker alcohol intake: never what type of physical activity do you participate in: bicycling HPI RIGHT HAND Details: This documentation accurately reflects the service provided and the decisions made by me, Dr. Miguel Harkins, DO 12/19/23 0757. Part of today?s visit was documented by Daisy HURD , acting as scribe. FERNANDO DE LA FUENTE is a 73 year old M here today for right hand pain. LHD. Patient states that this has been bothering him about 6 months. Patient does wear a brace at night which does help some. mosly thumb numbness, but he does have tingling in his whole hand to a lesser degree. Patient did have a EMG done on 10/25 and he was DX with Carpal Tunnel. 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 rarely he will have it come up his arm, Daily tingling with hands. Ortho Exam General General: Yes no acute distress and Yes well groomed Neurologic: Yes alert and Yes oriented x3 Psychologic: Yes reasonable and appropriate Right Wrist/Hand WRIST: Brace at night that helps some. Left hand dominate, full supination full pronation 45 degree stiffness, 70 degree wrist extension and flexion. Mild Tinels Postive twitching and jerking Supplemental Info 10/26/2023 EMG right upper extremity:1. Electrodiagnostic findings are suggestive of right-sided median mononeuropathy. This consistent with a severe right carpal tunnel syndrome. 2. There is no electrodiagnostic evidence for cervical radiculopathy. 10/28/2021 x-ray cervical spine: 1. Mild cervical spondylosis, minimal retrolisthesis of C4 on C5. 2. No fractures destructive bony process or gross malalignment. 10/08/2021 MRI cervical spine: Degenerative intervertebral disc disease visualized most prominent at C4-C5 and C5-C6 causing narrowing of the neuroforamina more prominent on the right. Patient is positive for the carpal tunnel surgery explained the surgery to Patient. Explain how he will be sore for a few months and how he will have weight restrictions for the first couple weeks. Risk of surgeries explain to him. No NSAIDS 7 days prior to surgery. Coding Level of Care Code Off vis,new,level 3 Diagnoses Carpal tunnel syndrome of right wrist G56.01 C6 radiculopathy M54.12 Assessment and Plan Assessment and Plan (1) Carpal tunnel syndrome of right wrist: Status: Acute (2) C6 radiculopathy: Status: Acute Plan Mr. Bee does have symptoms of carpal tunnel syndrome he does have a EMG evidence of severe right carpal tunnel syndrome and no evidence of radiculopathy however I explained to him the EMG is not very sensitive for radiculopathy does have history of a C6 radiculopathy on the right. I thoroughly reviewed the surgical procedure the postoperative recovery and expectations I described postoperative hypersensitivity and pillar pain postoperative weightbearing restrictions for 3 weeks and cannot guarantee his symptoms will resolve considering the severity of his carpal tunnel and the overlapping C6 radiculopathy. He does wish to proceed with surgical intervention. Reviewed the pre-operative plans with the patient. Risks and benefits of the procedure were fully explained, including but not limited to infection, neurovascular injury, continued pain, arthritis, stiffness, need for further surgery, re-injury, DVT, PE, general risks of anesthesia, and loss of limb or life. The patient understands all the risks and does wish to proceed with written consent. Tentative surgery date January 24, 2024. Clinical Quality Measures Falls Risk Screening/Assistive Devices Have you fallen in the past year?: Yes 12/19/23 0927 <Electronically signed by Miguel Harkins DO> Date Miguel Harkins DO Cosigner Signature: Date (if applicable) I have examined the patient and the &P has been reviewed. There are no clinical changes since date of exam.
[2024-01-24] MEDS: Cefazolin 2 GM in 0.9% Normal Saline (100mL Bag) 100 ML IV (15:54)
[2024-01-24] MEDS: Bupiv/Epi 0.25% 30 ML Vial (16:08)
--- NOTE | 2024-01-24 16:29 | PCM.POST.ANE ---
Anesthesia: Postop Eval I Current Vital Signs Temperature: 97 F Pulse Rate: 80 Blood Pressure: 110/59 Respiratory Rate: 14 Pulse Ox: 95 Oxygen Delivery Method: Room Air Assessment Airway patent: Yes Spontaneous unlabored respirations: Yes Mental status: Awake and Calm nausea: No Vomiting: No Anesthesia Complication: No Fluid Hydration Crystalloid volume administer (ml): 500 Total IV fluid infused: 500 Progress Note Anesthesia document: Postop Eval 1 completed: Yes
--- NOTE | 2024-01-24 16:29 | PCM.OP.BLANK ---
Operative Report Date of Procedure: 01/24/24 Preoperative diagnosis; right carpal tunnel syndrome Postoperative diagnosis; same Procedure: Left open carpal tunnel release Anesthesia: Local with MAC Tourniquet time; 10 minutes 250 mm Hg Complications: None Indication for procedure; This is a 73-year-old male with long-standing symptoms consistent with carpal tunnel syndrome the patient did have electrodiagnostic evidence of this and has failed conservative treatment. Risks benefits and alternatives were reviewed including risks of bleeding infection nerve artery tissue damage need for further surgery and continued pain and symptoms, hypersensitivity to scar and Pillar pain. Procedure; The patient was met in the preoperative holding area the operative extremity was identified by both patient and physician and was marked the patient was met by anesthesia and brought back to the operating room and transferred to the operating table in the supine position. Anesthesia was started. A well-padded tourniquet was placed on the operative upper extremity. The patient was prepped and draped in the usual sterile fashion. A timeout was called to ensure the proper patient procedure and extremity were being contemplated. 0.5 percent lidocaine with epinephrine was injected into the incisional area. An Esmarch was used to exsanguinate the extremity. The tourniquet was inflated to 250 mmHg. A midline incision was made with a 15 blade scalpel between the thenar and hypothenar eminence. This was carried down through the skin and subcutaneous tissue. Willard retractors were then used, a deep blade scalpel was used to make a deep incision in the palmar aponeurosis. The willard retractors were then placed deep to this and the transverse carpal ligament was identified a perforation was made with a scalpel and a Littler scissors were used to complete the release of the transverse carpal ligament distally under direct visualization with the tips facing ulnarly until the perivascular fat was reached. Then turning our attention proximally using a tension slide technique the proximal extent of the transverse carpal ligament was released . There was noted to be hourglass configuration to the median nerve and hypertrophy of the transverse carpal ligament without other findings. The wound was thoroughly irrigated and was closed with 4-0 nylon vertical mattress stitches. Dressing was applied in the form of xeroform 4 x 4, web roll and an stefanie wrap. Tourniquet was let down there is no intraoperative complications patient tolerated the procedure well and was transferred to the PACU. All counts were correct.
--- NOTE | 2024-01-24 16:32 | EX.PCM.DISCH ---
Discharge Instructions Diet Discharge Diet: No restrictions Activity Weight Bearing Status: No weight bearing Dressing / Incision Call your doctor if you observe: Shortness of breath and Chest pain Additional Dressing/Incision Instructions:: Ice and elevate operative extremity next 72 hours. Keep dressing on clean and dry for 48 hours then may remove and allow warm soapy water to rinse over incision but do not submerge until sutures are out. Then apply bandaid over incision and change daily. encourage finger range of motion. Not lift more than 1/2 pound. Minimize narcotic use only as needed and directed, may use OTC NSAID and Tylenol to supplement/substitute for pain control. Follow Up Care Please Follow Up With: Miguel Harkins DO When: 2 weeks Test Results: Test results from this visit will be discussed in further detail at your follow-up appointment, if applicable. Discharge Plan Admission Primary Reason for Your Visit: Right carpal tunnel release Attending Provider: Miguel Harkins Primary Care Provider: Girma Payne Instructions Print Language: Albanian Discharge Orders/Prescriptions Prescriptions: New oxycodone 5 mg tablet 5 - 10 mg PO Q4H PRN (Reason: pain) 7 Days Qty: 10 0RF Continued multivitamin tablet 1 tab PO DAILY ascorbic acid (vitamin C) 1,000 mg tablet 1 tab PO DAILY tumeric 500 mg PO DAILY cholecalciferol (vitamin D3) 50 mcg (2,000 unit) capsule 50 mcg PO DAILY amlodipine 10 mg tablet 10 mg PO DAILY Qty: 90 2RF atorvastatin 20 mg tablet See Rx Instructions .ROUTE .COMPLEX Qty: 90 1RF Dose Instruction: TAKE 1 TABLET BY MOUTH DAILY Rx Instructions: TAKE 1 TABLET BY MOUTH DAILY hydrochlorothiazide 25 mg tablet 25 mg PO QAM Qty: 90 1RF Referrals / Follow Up: Girma Payne DO [Primary Care Provider] - Disposition Disposition (needs filled in before D/C Order can be placed): Home, Self Care
--- NOTE | 2024-01-24 17:05 | POSTOPAN2_ITS ---
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 Spontaneous unlabored Yes 01/24/24 16:29 TREATING PLANT OPERATOR.[email or web address] respirations Mental status Awake,Calm 01/24/24 16:29 TREATING PLANT OPERATOR.[email or web address] nausea No 01/24/24 16:29 TREATING PLANT OPERATOR.[email or web address] Vomiting No 01/24/24 16:29 TREATING PLANT OPERATOR.[email or web address] Anesthesia Postop Eval I: Fluid Summary Crystalloid volume administer 500 01/24/24 16:29 TREATING PLANT OPERATOR.[email or web address] (ml) Colloids volume administered ( ml) Blood Product volume administered (ml) Total IV fluid infused 500 01/24/24 16:29 TREATING PLANT OPERATOR.[email or web address] Anesthesia Postop Eval I: Summary Notes Anesthesia Complication No 01/24/24 16:29 TREATING PLANT OPERATOR.[email or web address] Anesthesia Complication Comment: Post-operative progress note Anesthesia: Postop Eval II Evaluation Mental status: Awake and Calm Pain Level: 0 nausea: No Vomiting: No Complications Anesthesia Complication: No
--- NOTE | 2024-01-24 17:05 | PCM.POSTANE2 ---
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 Spontaneous unlabored Yes 01/24/24 16:29 BUSINESS SALES CONSULTANT.[email or web address] respirations Mental status Awake,Calm 01/24/24 16:29 BUSINESS SALES [email or web address].[email or web address] nausea No 01/24/24 16:29 BUSINESS SALES CONSULTANT.[email or web address] Vomiting No 01/24/24 16:29 BUSINESS SALES CONSULTANT.[email or web address] Anesthesia Postop Eval I: Fluid Summary Crystalloid volume administer 500 01/24/24 16:29 BUSINESS SALES CONSULTANT.[email or web address] (ml) Colloids volume administered ( ml) Blood Product volume administered (ml) Total IV fluid infused 500 01/24/24 16:29 BUSINESS SALES CONSULTANT.[email or web address] Anesthesia Postop Eval I: Summary Notes Anesthesia Complication No 01/24/24 16:29 BUSINESS SALES [email or web address].[email or web address] Anesthesia Complication Comment: Post-operative progress note Anesthesia: Postop Eval II Evaluation Mental status: Awake and Calm Pain Level: 0 nausea: No Vomiting: No Complications Anesthesia Complication: No
== END 2024-01-24 17:59 | disposition home or self-care (01) ==
LOC: SDC 14:35 → AC 14:36
PROVIDERS: PCP Family Medicine; Referring Provider Orthopaedic Surgery; Visit Provider Orthopaedic Surgery
PROC: (CPT 64721; principal; 2024-01-24 15:55)
DX: G56.01 Carpal tunnel syndrome, right upper limb (principal); I10 Essential (primary) hypertension; E78.00 Pure hypercholesterolemia, unspecified; G47.33 Obstructive sleep apnea (adult) (pediatric); Z79.899 Other long term (current) drug therapy
CPT/HCPCS: 64721; 01810; J7120; J2405

== ENCOUNTER → 2024-01-30 | Outpatient (CLI) | payer MEDICARE, OTHER, SELFPAY ==
[2024-01-30 09:27] LABS: Absolute Lymphocyte Count 1.98 X10^3/uL (0.83-4.51); Absolute Neutrophil Count 3.4 X10^3/uL (2.0-7.7); Basophil# 0.03 X10^3/uL; Basophil% 0.5 % (0-1); Eosinophil# 0.12 X10^3/uL; Hematocrit 42.3 % (40-54); Hemoglobin 13.9 g/dL (13.0-16.5); Lymphocyte # 1.98 X10^3/ul (0.83-4.51); Lymphocyte % 32.3 % (19-41); Mean Corp Hgb Conc 32.9 g/dL (32-36); Mean Corpuscular Hgb 31.3 pg (27.0-32.0); Mean Corpuscular Volume 95.3 fL (80-94); Mean Platelet Vol. 9.9 fl (6.2-12.0); Monocyte# 0.59 X10^3/uL; Monocyte% 9.6 % (0-10); NRBC Flagged by Analyzer 0 % (0-5); Neutrophil # 3.39 X10^3/uL (2.7-7.7); Neutrophil % 55.3 % (47-70); Platelet Count 372 K/mm3 (150-450); RBC Distribution Width CV 13.8 % (11.6-14.6); RBC Distribution Width SD 48.4 fl (35.1-43.9); Red Blood Count 4.44 M/mm3 (4.6-6.2); White Blood Count 6.1 K/mm3 (4.4-11.0)
[2024-01-30 09:59] LABS: Hemoglobin A1c 6.1 % (3.8-5.6)
[2024-01-30 11:18] LABS: ALB/GLOB Ratio 0.8 RATIO (0.9-2.4); AST(SGOT) 24 U/L (15-37); Alanine Aminotransfer ALT/SGPT 20 U/L (16-61); Albumin, Serum 3.4 g/dL (3.2-5.0); Alkaline Phosphatase 97 U/L (45-117); Anion Gap 6 (5-15); BUN 26 mg/dL (7-18); BUN/Creat Ratio 23.4 RATIO (10-20); Calcium,Total 9.4 mg/dL (8.5-10.1); Chloride 106 mmol/L (98-107); Cholesterol 180 mg/dL (200); Creatinine, Serum 1.11 mg/dL (0.70-1.30); EST Glomerular Filtration Rate 69 mL/min (>60); Est Glom Filt Rate - Afr Amer 83 mL/min (>60); Globulin 4.1 g/dL (2.2-4.2); Glucose 110 mg/dL (74-106); High Density Lipoprotein 47 mg/dL; Potassium 3.9 mmol/L (3.5-5.1); Protein, Total 7.5 g/dL (6.4-8.2); Sodium Level 139 mmol/L (136-145); Thyroid Stim Hormone (TSH) 2.24 uIU/mL (0.358-3.74); Triglycerides 199 mg/dL; Very Low Density Lipoprotein 40 mg/dL (5-40)
== END | disposition home or self-care (01) ==
LOC: LAB 08:41
PROVIDERS: PCP Family Medicine; Referring Provider Nurse Practitioner Family; Visit Provider Nurse Practitioner Family
DX: I10 Essential (primary) hypertension (principal); E78.5 Hyperlipidemia, unspecified
CPT/HCPCS: 36415; 80053; 80061; 83036; 84443; 85025

== ENCOUNTER → 2024-08-07 | Outpatient (CLI) | payer MEDICARE, SELFPAY ==
[2024-08-07 13:47] LABS: ALB/GLOB Ratio 0.8 RATIO (0.9-2.4); AST(SGOT) 21 U/L (15-37); Alanine Aminotransfer ALT/SGPT 33 U/L (16-61); Albumin, Serum 3.3 g/dL (3.2-5.0); Alkaline Phosphatase 99 U/L (45-117); Anion Gap 7 (5-15); BUN 23 mg/dL (7-18); BUN/Creat Ratio 20.5 RATIO (10-20); Calcium,Total 9.7 mg/dL (8.5-10.1); Chloride 102 mmol/L (98-107); Cholesterol 170 mg/dL (200); Creatinine, Serum 1.12 mg/dL (0.70-1.30); EST Glomerular Filtration Rate 68 mL/min (>60); Est Glom Filt Rate - Afr Amer 82 mL/min (>60); Globulin 4.3 g/dL (2.2-4.2); Glucose 105 mg/dL (74-106); High Density Lipoprotein 48 mg/dL; Potassium 4.4 mmol/L (3.5-5.1); Protein, Total 7.6 g/dL (6.4-8.2); Sodium Level 139 mmol/L (136-145); Triglycerides 230 mg/dL; Very Low Density Lipoprotein 46 mg/dL (5-40)
== END | disposition home or self-care (01) ==
LOC: BIMLAB 09:49
PROVIDERS: PCP Family Medicine; Referring Provider Family Medicine; Visit Provider Family Medicine
DX: E78.5 Hyperlipidemia, unspecified (principal); Z12.5 Encounter for screening for malignant neoplasm of prostate; I10 Essential (primary) hypertension
CPT/HCPCS: 36415; 80053; 80061; 84153; G0103

== ENCOUNTER → 2024-08-23 | Outpatient (CLI) | payer MEDICARE, SELFPAY ==
[2024-08-26 03:02] LABS: PSA, Free 0.98 ng/mL; PSA, Free % 31.3 % (.)
== END | disposition home or self-care (01) ==
LOC: LAB 14:03
PROVIDERS: PCP Family Medicine; Referring Provider Urology; Visit Provider Urology
DX: R97.20 Elevated prostate specific antigen [PSA] (principal)
CPT/HCPCS: 36415; 84153; 84154